=== PATIENT | male | born 1965 | race Caucasian/White ===

== ENCOUNTER 2018-09-17 19:00 | Inpatient (IN) | payer SELFPAY ==
[~2018-09-17 19:00] MED LIST: ISOVUE-370 76%-LOCM 1 ML ONE
[2018-09-17 19:25] LABS: #Basophils 0.1 thou/uL (0.0-0.2); #Eosinphils 0.1 thou/uL (0.0-0.7); #Lymphocytes 3.3 thou/uL (1.20-3.40); #Monocytes 0.5 thou/uL (0.11-0.59); #Neutrophils 2.9 thou/uL (1.40-6.50); %Basophils 1.3 % (0.0-1.0); %Eosinophils 1.5 % (0.0-10.0); %Lymphocytes 47.8 % (21.0-51.0); %Monocytes 7.5 % (0.0-10.0); Hemoglobin 15.5 g/dL (14.0-18.0); Mean Corpuscular HGB CONC 34.6 g/dL (32.0-36.0); Mean Corpuscular Hemoglobin 30.8 pg (27.0-31.0); Mean Corpuscular Volume 88.9 fL (78.0-98.0); Mean Platelet Volume 7.5 fL (7.4-10.4); Platelet Count 245 thou/uL (130-400); RBC Distribution Width 11.5 % (11.5-14.5); Red Blood Cell (RBC) Count 5.02 mill/uL (4.70-6.10); White Blood Cell (WBC) Count 6.9 thou/uL (4.8-10.8)
--- NOTE | 2018-09-17 19:28 | RAD ---
Portable frontal chest radiograph: 09/17/2018 COMPARISON: 02/11/2017 HISTORY: Chest pain FINDINGS: Lungs are clear. Heart and mediastinal contours appear within normal limits. IMPRESSION: No acute findings.
[2018-09-17 19:48] LABS: ALT (SGPT) 19 U/L (8-55); AST (SGOT) 15 U/L (5-34); Albumin 4.4 g/dL (3.5-5.0); Alkaline Phosphatase 82 U/L (40-150); Anion Gap 14 mmol/L (10-20); BUN (Urea Nitrogen) 15 mg/dL (8.4-25.7); Bilirubin, Total 0.5 mg/dL (0.2-1.2); CK (CPK) 205 U/L (30-200); Calc. Creatinine Clearance 0 mL/min (70-130); Calcium 9.3 mg/dL (7.8-10.44); Carbon Dioxide 24 mmol/L (22-29); Chloride 102 mmol/L (98-107); Estimated GFR-MDRD 84; Globulin 2.8 g/dL (2.4-3.5); Glucose 279 mg/dL (70-105); Lipase 63 U/L (8-78); Potassium 3.7 mmol/L (3.5-5.1); Protein, Total 7.2 g/dL (6.0-8.3); Sodium 136 mmol/L (136-145)
[2018-09-17] MEDS ORDERED: Ondansetron PF 4 MG/2 ML Vial ONE (19:53)
[2018-09-17] MEDS ORDERED: Morphine 4 MG/ML VIAL ONE ×2 (19:53→21:05)
[2018-09-17] MEDS ORDERED: Nitroglycerin 50 MG/250 ML BOT 250 ML ONE (21:05)
[2018-09-17] MEDS ORDERED: Ketorolac Tromethamine 30 MG/ML VIAL ONE (21:05)
[2018-09-17] MEDS ORDERED: Nitroglycerin 50 MG/250 ML BOT 250 ML IVPB SCH (21:15)
[2018-09-17] MEDS ORDERED: Ondansetron ODT 4 MG TAB PO PRN (21:16)
[2018-09-17] MEDS ORDERED: Ondansetron PF 4 MG/2 ML Vial IVP PRN (21:16)
[2018-09-17] MEDS ORDERED: Acetaminophen 325 MG TAB PO PRN (21:16)
--- NOTE | 2018-09-17 21:57 | CT ---
CT angiogram of the chest and abdomen: 09/17/2018 COMPARISON: 02/21/2016 HISTORY: Pain, assess for thoracic or abdominal aortic aneurysm/dissection TECHNIQUE: Axial CT imaging at 2.5 mm intervals through the chest and abdomen using a CT angiogram pr otocol with coronal and sagittal 3-D reformatted imaging FINDINGS: No lymphadenopathy noted in the chest. Coronary arterial calcification noted. No pleural, p ericardial, or mediastinal fluid. No evidence for aneurysm or dissection of the thoracic aorta. Lung parenchyma appears unremarkable. The hepatic parenchyma is hypodense, suggesting hepatic steatosis. The gallbladder, spleen, pancreas, adrenal glands, and kidneys demonstrate no acute findings. There is a stable low-density lesion emanating from the upper pole of the right kidney measuring 1.3 cm, suggesting a stable renal cyst. Limited assessment of the bowel is unremarkable. The pelvis is not imaged on this exam. No evidence f or aneurysm or dissection of the abdominal aorta. Celiac axis, SMA, bilateral renal arteries, and [place] patent. Mild atherosclerotic calcification of the distal abdominal aorta noted. Osseous structures demonstrate no acute findings. IMPRESSION: No evidence for aneurysm or dissection of the aorta.
[2018-09-17] MEDS ORDERED: Dextrose 5% in Water 1,000 ML IV PRN (22:03)
[2018-09-17] MEDS ORDERED: Dextrose 50% Abboject 50 ML SYRINGE SLOW IVP PRN (22:03)
[2018-09-17] MEDS ORDERED: Enoxaparin Sodium 100 MG/ML SYRINGE ONE (22:30)
[2018-09-17 22:55] LABS: Troponin I 0.086 ng/mL (< 0.028)
[2018-09-17 23:28] VITALS: BMI 29.2
--- NOTE | 2018-09-17 23:30 | HP ---
PRIMARY CARE DOCTOR: Primary care doctor for this patient is Dr. Jarrett Burns. CODE STATUS: Full code. TIME OF EVALUATION: 9:30 p.m. CHIEF COMPLAINT: Chief complaint for this patient was chest pain. HISTORY OF PRESENT ILLNESS: A 52-year-old male patient with past medical history of coronary artery disease and noncompliance due to financial problems, came to the hospital after having chest pain that was started around 6 p.m., no clear triggers, no alleviating factors. The only event related to the chest pain was the patient got stressed out due to his dogs having a fight. The pain radiates to the left arm, pain is pressure like, severe, has improved with morphine, but has taken a little time to get any improvement. Case has been discussed with Dr. Raines by Dr. Charles, and the plan is to place the patient in ICU on nitroglycerin drip and morphine. We will follow recommendations from Cardiology. As noted, he had acute CA 4 years ago and had 3 stents placed at that time. REVIEW OF SYSTEMS: CONSTITUTIONAL: No fever, chills, or generalized weakness. RESPIRATORY: No cough, sputum production, or shortness of breath. CARDIOVASCULAR: Chest pain. No palpitation. GASTROINTESTINAL: No nausea, no vomiting, diarrhea, or abdominal pain. PHOTOCOPYING MACHINE OPERATOR: No dizziness, headache, or feeling lightheaded. GENITOURINARY: No burning on urination. EXTREMITIES: No leg swelling. All other systems were reviewed and negative except for the findings mentioned above. PAST MEDICAL HISTORY: Reviewed. The patient has coronary artery disease, status post acute CA and stent placement 4 years ago; type 2 diabetes; hyperlipidemia; high cholesterol; hypertension; and COPD. PAST SURGICAL HISTORY: The patient has orthopedic surgeries in the left ankle. PSYCHIATRIC HISTORY: No previous psych history. SOCIAL HISTORY: The patient drinks socially. No drugs. Former tobacco user. FAMILY HISTORY: Reviewed. The patient has a history of mother having coronary artery disease. KNOWN ALLERGIES: No known drug allergies. REPORTED MEDICATIONS: The patient was noncompliant. Reportedly, he was on Plavix, aspirin, and Coreg, but was unable to buy due to financial issues. PHYSICAL EXAMINATION: VITAL SIGNS: On presentation, blood pressure 176/95, heart rate 83, respiratory rate 16, temperature 98.4, pain 7/10, and oxygen saturation was 98% on 2 L. GENERAL APPEARANCE: The patient is alert, oriented, not in acute distress. HEENT: Eyes, normal conjunctivae. Moist oral mucosa. Anicteric. No JVD. RESPIRATORY: Bilateral air entry. No rales. No wheezes. Symmetric expansion. CARDIOVASCULAR: Normal rate, regular rhythm. No murmurs. No gallop. No edema. The patient is hypertensive. ABDOMEN: Soft, normal bowel sounds. MUSCULOSKELETAL: Baseline range of motion and strength. No tenderness. SKIN: Warm, intact. No pallor. No rash. No redness. Peripheral pulses are present. Capillary refill seems to be intact. NEUROLOGIC: No evidence of any new focal weakness. Baseline speech. Cranial nerves seem to be intact. PSYCH: The patient is in good mood. No anxiety. Optimal judgment. IMAGING STUDIES: EKG was reviewed. The patient has normal sinus rhythm at the rate of 64 with WA 146, QRS 112, QT corrected 456, incomplete RBBB. CT dissection was done and reviewed, no evidence of aneurysmal dissection of the aorta. Chest x-ray, no acute findings. LABORATORY DATA: Labs were reviewed. White count 6.9, hemoglobin 15.5, MCV 88.9, and platelet count 245. D-dimer 0.36. Chemistry; sodium 136, potassium 3.7, chloride 102, carbon dioxide 24, anion gap 14, BUN 15, creatinine 0.95, GFR 84, glucose 279, calcium 9.3, and total bilirubin 0.5. LFTs were negative. CK 205. Troponin was negative. Lipase 63. ASSESSMENT AND PLAN: The patient will be placed in the hospital with following medical problems: 1. Unstable angina. The patient has persistent severe chest pain radiating to the left arm. The patient has a history of strong coronary artery disease with 3 stents placed 4 years ago after acute myocardial infarction. The patient has been placed on nitroglycerin drip, with morphine, Lovenox, and aspirin. We will monitor in ICU, likely to go for cardiac cath in the morning. 2. Hypertensive emergency. Blood pressure was in the range of 220s, the patient is on nitroglycerin drip, we will monitor, we will titrate as needed. We will monitor critical care. We have reconciled home medications. The patient was noncompliant. We are restarting medication he was taking prior to discharge last time including Coreg and lisinopril. 3. Systolic congestive heart failure after last myocardial infarction in 2014 and left ventricular ejection fraction was 30% to 35%. The patient was taking Lasix that will be restarted for now. We will reconcile home medications, restart them. We will follow Cardiology recommendations. 4. Uncontrolled diabetes. The patient is hyperglycemic with blood sugar of 279, we are restarting on insulin. Both Lantus and sliding scale for optimal control. 5. Deep venous thrombosis prophylaxis. The patient is on full-dose Lovenox now. Critical care time more than 35 minutes spent in bedside assessment, family consent, discussion of plan of care, review of records, medication reconciliation. Job ID: [id number]
[2018-09-18] MEDS: Morphine 2 MG/ML SYRINGE SLOW IVP PRN ×2 (01:52→08:14)
[2018-09-18 06:52] LABS: #Basophils 0.1 thou/uL (0.0-0.2); #Eosinphils 0.1 thou/uL (0.0-0.7); #Lymphocytes 2.9 thou/uL (1.20-3.40); #Monocytes 0.8 thou/uL (0.11-0.59); #Neutrophils 6.7 thou/uL (1.40-6.50); %Basophils 0.5 % (0.0-1.0); %Eosinophils 0.8 % (0.0-10.0); %Lymphocytes 27.1 % (21.0-51.0); %Neutrophils 63.6 % (42.0-75.0); Hemoglobin 14.8 g/dL (14.0-18.0); Mean Corpuscular HGB CONC 34.4 g/dL (32.0-36.0); Mean Platelet Volume 7.9 fL (7.4-10.4); Platelet Count 231 thou/uL (130-400); RBC Distribution Width 11.6 % (11.5-14.5); Red Blood Cell (RBC) Count 4.77 mill/uL (4.70-6.10); White Blood Cell (WBC) Count 10.6 thou/uL (4.8-10.8)
[2018-09-18] MEDS ORDERED: Midazolam HCl 2 mg/2 ml Vial ONE (07:09)
[2018-09-18] MEDS ORDERED: Fentanyl 100 MCG/2 ML VIAL ONE (07:09)
[2018-09-18 07:21] LABS: Anion Gap 12 mmol/L (10-20); BUN (Urea Nitrogen) 15 mg/dL (8.4-25.7); Calc. Creatinine Clearance 124 mL/min (70-130); Calcium 9.1 mg/dL (7.8-10.44); Carbon Dioxide 25 mmol/L (22-29); Chloride 103 mmol/L (98-107); Estimated GFR-MDRD 89; Glucose 312 mg/dL (70-105); Potassium 3.7 mmol/L (3.5-5.1); Sodium 136 mmol/L (136-145)
[2018-09-18] MEDS ORDERED: Carvedilol 25 MG TAB PO SCH ×2 (08:00→09:00)
[2018-09-18] MEDS ORDERED: Aspirin 325 MG TAB PO SCH (08:00)
[2018-09-18] MEDS: Furosemide 40 MG TAB PO SCH (08:18)
[2018-09-18] MEDS: Lisinopril 20 MG TAB PO SCH ×2 (08:18→20:25)
[2018-09-18] MEDS: HYDROcodone/Acetaminophen 10/325 mg Tablet PO PRN (08:33)
[2018-09-18] MEDS: HumaLOG 300 UNITS/3 ML VIAL SC PRN ×2 (08:34→17:51)
[2018-09-18] MEDS ORDERED: Iopamidol 370 76% 100 ML VIAL ONE (08:39)
--- NOTE | 2018-09-18 08:40 | CON ---
DATE OF CONSULTATION: REASON FOR CONSULTATION: Elevated troponin and chest pain. HISTORY OF PRESENT ILLNESS: Mr. Moreno is a very pleasant 52-year-old gentleman who I last him in 2014. He presented with acute myocardial infarction. He underwent successful stent placement with a bare-metal stent. He has been lost to follow up. Recently, he states his dogs were fighting. He the dogs and had acute onset of chest pain during the incident. The pain was severe. The pain seems to be sharp and worse with deep breath. No other ameliorating, exacerbating, or precipitating factors present. PAST MEDICAL HISTORY: As above including diabetes mellitus, hyperlipidemia, hypertension, and COPD. MEDICATIONS: None. ALLERGIES: NONE. REVIEW OF SYSTEMS: A 10-point review of systems is reviewed as above, otherwise negative. PHYSICAL EXAMINATION: VITAL SIGNS: Blood pressure 137/81, pulse 73, temperature afebrile. NEUROLOGIC: The patient is alert and oriented x3 with no focal neurologic deficits. HEENT: Sclerae without icterus. Mouth has moist mucous membranes with normal pallor. NECK: No JVD. Carotid upstroke brisk. No bruits bilaterally. LUNGS: Clear to auscultation with unlabored respirations. BACK: No scoliosis or kyphosis. CARDIAC: Regular rate and rhythm with normal S1 and S2. No S3 or S4 noted. No significant rubs, murmurs, thrills, or gallops noted throughout the precordium. PMI is not displaced. There is no parasternal heave. ABDOMEN: Soft, nontender, nondistended. No peritoneal signs present. No hepatosplenomegaly. No abnormal striae. EXTREMITIES: 2+ femoral and 2+ dorsalis pedis pulses. No cyanosis, clubbing, or edema. SKIN: No gross abnormalities. PERTINENT LABORATORY DATA: Hemoglobin 14.8, creatinine 0.34. CK of 205. Creatinine 0.9. IMPRESSION: 1. Elevated troponin. 2. Chest pain. RECOMMENDATIONS: I am unsure whether this is truly unstable angina or type 2 NC from recent stress. He has been off his diabetes medicines for several years due to compliance and financial constraints. At this point, I recommend coronary angiography with possible PCI. I discussed the procedure in full detail with Mr. Chaparro. Risks included, but not limited to the following: , stroke, NC, need for emergency surgery, loss of limb, bleeding, and infection, as well as a reaction to the dye causing kidney failure and needing long-term dialysis. I also discussed the risks of PCI to include all of the above including coronary dissection and perforation in addition to acute stent thrombosis and restenosis. All questions about the procedure were answered. Given the above, the patient agreed to proceed with coronary angiography and possible PCI. All questions answered. Given the above, the patient agreed to proceed with above procedure. Job ID: [id number]
[2018-09-18] MEDS: Aspirin 81 mg Enteric Coated Tablet PO SCH (08:45)
[2018-09-18] MEDS: Carvedilol 6.25 MG TAB PO SCH ×2 (08:45→20:25)
[2018-09-18] MEDS ORDERED: Clopidogrel Bisulfate 75 MG TAB PO SCH (09:00)
[2018-09-18] MEDS ORDERED: Non-Formulary Item 1 EACH (Insulin Glargine,Hum.Rec.Anlog [Lantus Solostar] 20 UNIT) SQ SCH (09:00)
--- NOTE | 2018-09-18 10:10 | PDOC.PN ---
- Subjective Encounter Start Date: 09/18/18 Encounter Start Time: 12:30 Subjective: Patient back from cath. Still with soreness across front of chest and left -: arm. Better than yesterday. Reportedly nothing operable found -: on cath. - Objective Resuscitation Status - Order Detail: 09/17/18 21:16 Resuscitation Status Routine Resuscitation Status: FULL: Full Resuscitation MAR Reviewed: Yes Vital Signs & Weight: Vital Signs (12 hours) Temp BP Pulse Ox 09/18/18 08:45 147/78 H 09/18/18 08:18 147/78 H 09/18/18 02:00 100 09/17/18 22:54 98.4 F Weight Weight 198 lb 6.656 oz Most Recent Monitor Data Heart Rate from ECG 71 NIBP 136/71 NIBP BP-Mean 92 Respiration from ECG 19 SpO2 97 I&O: 09/17/18 09/18/18 09/19/18 06:59 06:59 06:59 Intake Total 164 Output Total 750 Balance -586 Result Diagrams: 09/18/18 06:29 09/18/18 06:29 Additional Labs: Accuchecks 09/18/18 09/18/18 08:18 06:24 POC Glucose 281 H 309 H Phys Exam - Physical Examination Constitutional: NAD HEENT: moist MMs Respiratory: no wheezing, no rales, no rhonchi Cardiovascular: RRR, no significant murmur Gastrointestinal: soft, positive bowel sounds Neurological: non-focal, moves all 4 limbs Psychiatric: normal affect, A&O x 3 Dx/Plan (1) NSTEMI (non-ST elevated myocardial infarction) Code(s): I21.4 - NON-ST ELEVATION (NSTEMI) MYOCARDIAL INFARCTION Status: Acute Comment: chest pain and elevated troponin, taken to quality control lab tech this AM, report pending (2) Coronary atherosclerosis of [place] coronary artery Code(s): I25.10 - ATHSCL HEART DISEASE OF [place] CORONARY ARTERY W/O ANG PCTRS Status: Chronic Comment: previous bare metal stent (3) Diabetes mellitus type 2 in nonobese Code(s): E11.9 - TYPE 2 DIABETES MELLITUS WITHOUT COMPLICATIONS Status: Chronic Comment: off medications for years, restarting Lantus and SSI (4) Hypertensive emergency Code(s): I16.1 - HYPERTENSIVE EMERGENCY Status: Acute Comment: BP improved with nitro drip (5) Chronic systolic CHF (congestive heart failure) Code(s): I50.22 - CHRONIC SYSTOLIC (CONGESTIVE) HEART FAILURE Status: Chronic Comment: EF 30-35% in 2015 - Plan cont current plan of care, DVT proph w/lovenox * . - Discharge Day Encounter end time: 12:40
[2018-09-18] MEDS: Insulin Glargine 20 UNITS in Pre-Filled Syringe 1 EACH SC SCH ×2 (10:36→20:25)
[2018-09-18] MEDS: Enoxaparin Sodium 40 MG/0.4 ML SYRINGE SC SCH (10:36)
--- NOTE | 2018-09-18 13:21 | CON ---
DATE OF CONSULTATION: 09/18/2018 SERVICE: Pulmonary Medicine. REASON FOR CONSULTATION: ICU patient. HISTORY OF PRESENT ILLNESS: The patient is a 52-year-old white male with past medical history significant for coronary artery disease. He was in his usual state of health until 3 months ago. Whenever he exerted himself, he had onset of shortness of breath, chest discomfort, and left arm pain. This was exactly the same discomfort that he experienced previously with acute coronary syndrome. Either way, he had this pain over 3 months as it became increasingly intense with less exertion. He finally had exert himself to a significant degree to break up a dog fight. When he did this, he had horrendous discomfort and has not gone away since. He presented to the emergency department. Cardiac catheterization was performed, but the vessels were so small that no intervention could be undertaken. He denies any current fevers, chills, cough, sputum production, nausea, vomiting, or diarrhea. He continues to have ongoing chest discomfort. PAST MEDICAL HISTORY: 1. Coronary artery disease. 2. Type 2 diabetes mellitus. 3. Hypertension. 4. Dyslipidemia. 5. Obstructive sleep apnea. 6. COPD, possible. PAST SURGICAL HISTORY: Left ankle surgeries. FAMILY HISTORY: Noncontributory. SOCIAL HISTORY: He drinks socially. He is a former tobacco user. He has greater than [id number] history of smoking, but quit within the last 5 years. No illicit drug use. He denies any exposure to chemicals, dust, asbestos, or tuberculosis. ALLERGIES: NO KNOWN DRUG ALLERGIES. MEDICATIONS: List of the patient's inpatient medications was reviewed. No specific updates were made at this time. REVIEW OF SYSTEMS: General; head, ears, eyes, nose, throat; cardiovascular; respiratory; GI; ; musculoskeletal; neurologic; and skin are negative except as mentioned in the HPI. PHYSICAL EXAMINATION: VITAL SIGNS: Afebrile, pulse 72, blood pressure 130/85, respirations 19, and saturation 98% on 2 L nasal cannula. GENERAL: The patient is awake and alert, in no apparent distress. LUNGS: Excellent air entry. No prolonged expiratory phase or wheezing is present. HEART: Normal rate and regular. ABDOMEN: Soft, nontender, and nondistended. Bowel sounds are positive. MUSCULOSKELETAL: No cyanosis or clubbing. No pitting in the bilateral lower extremities. NEUROLOGIC: Grossly nonfocal. LABORATORY DATA: WBC 10.6, hemoglobin 14.8, platelets 231,000. D-dimer 0.36. Basic metabolic profile is otherwise unremarkable. Liver function studies are unremarkable. Troponin is up trending to 0.34. IMAGING STUDIES: CT dissection protocol demonstrates no evidence of dissection. Chest x-ray demonstrates no acute cardiopulmonary abnormality. ASSESSMENT: 1. Dkl-IQ-itwluisjb myocardial infarction, possibly demand. 2. Obstructive sleep apnea. 3. Acute on chronic systolic heart failure. 4. History of diabetes. DISCUSSION AND PLAN: We will get hemoglobin A1c in the morning. I will repeat a troponin now. If it is up trending, we will consider initiating anticoagulation. Pulmonary/Critical Care will continue to follow along as the patient will need to remain in the ICU for the next 24 hours. 70 minutes have been devoted to this patient in various activities. I personally reviewed all imaging studies and laboratory data noted within this document. For fifty percent of this time, I was interacting with the patient at the bedside or coordinating care with the care team. For the remainder of the time I was immediately available to the patient in the hospital unit. Job ID: [id number] MTDD
[2018-09-18 13:59] LABS: Troponin I 2.889 ng/mL (< 0.028)
[2018-09-18] MEDS ORDERED: Nitroglycerin 2% Ointment 1 INCH/1 GM Packet TOP SCH (14:45)
[2018-09-18] MEDS ORDERED: Ketorolac Tromethamine 30 MG/ML VIAL IVP SCH (14:45)
--- NOTE | 2018-09-18 19:04 | PRG ---
DATE OF SERVICE: I was called again to Mr. Chaparro at bedside. He continued to have pain. He states his pain has been unremitting since yesterday. After further discussion, it appeared he did have a confrontation with both animals. He does have reproducible pain, that is felt to be tevdbbsr-nk-trrmwx with hnkv-ey-bmaqnxoa palpation in the left upper chest. I reviewed his films once again. He does have qhidopky-jo-anecia small vessel disease mainly in the circumflex artery and right coronary artery, that are not amenable to percutaneous intervention. His elevated troponin is likely related to [place] type-2 with no unstable plaque present. Would regive 1 dose of Toradol. May need nonsteroidal therapy prior to discharge. Otherwise, continue current medical therapy. Recommend aspirin, Plavix, statin therapy, Imdur in addition to beta-jacques therapy. From my standpoint, will be okay for discharge to home tomorrow. Job ID: [id number]
[2018-09-18] MEDS ORDERED: Montelukast Sodium 10 mg Tablet PO SCH (21:00)
[2018-09-18] MEDS ORDERED: Atorvastatin Calcium 40 MG TAB PO SCH (21:00)
[2018-09-19 04:54] LABS: Hemoglobin A1c 10.7 % (4.0-6.0)
[2018-09-19] MEDS ORDERED: Venlafaxine HCl XR 150 MG CAP PO SCH ×2 (08:00→09:00)
[2018-09-19] MEDS ORDERED: Carvedilol 6.25 MG TAB PO SCH (09:00)
[2018-09-19] MEDS: HYDROcodone/Acetaminophen 10/325 mg Tablet PO PRN ×2 (09:46→15:56)
[2018-09-19] MEDS: Insulin Glargine 20 UNITS in Pre-Filled Syringe 1 EACH SC SCH (09:48)
[2018-09-19] MEDS: Enoxaparin Sodium 40 MG/0.4 ML SYRINGE SC SCH (09:48)
[2018-09-19] MEDS: Aspirin 81 mg Enteric Coated Tablet PO SCH (09:49)
[2018-09-19] MEDS: Lisinopril 20 MG TAB PO SCH (09:49)
[2018-09-19] MEDS: Furosemide 40 MG TAB PO SCH (09:49)
[2018-09-19] MEDS: HumaLOG 300 UNITS/3 ML VIAL SC PRN (11:35)
[2018-09-19 13:06] VITALS: BP 135/83; TEMP 98.1
--- NOTE | 2018-09-19 16:43 | PRG ---
DATE OF SERVICE: 09/19/2018 SERVICE: Pulmonary Medicine. INTERVAL HISTORY: The patient is doing really well from respiratory standpoint. He is breathing comfortably. He has no complaints of chest pain, fevers, or chills. Occasionally, he will have some shoulder discomfort that comes and goes. Otherwise, he is returning to his usual state of health. PHYSICAL EXAMINATION: VITAL SIGNS: Afebrile, pulse 73, blood pressure 135/83, respirations 16, and saturation 95% on room air. GENERAL: The patient is awake and alert, in no apparent distress. LUNGS: Decent air entry. There is no prolonged expiratory phase or wheezing present. HEART: Normal rate, regular. ABDOMEN: Soft, nontender, and nondistended. Bowel sounds are positive. MUSCULOSKELETAL: No cyanosis or clubbing. No pitting in bilateral lower extremities. NEUROLOGIC: Grossly nonfocal. LABORATORY DATA: Troponin 2.889. Hemoglobin A1c 10.7. ASSESSMENT: 1. Non-ST elevation myocardial infarction possibly secondary to demand. 2. Coronary artery disease, severe. 3. Obstructive sleep apnea. 4. Type 2 diabetes mellitus with elevated hemoglobin A1c. DISCUSSION AND PLAN: At this point, the patient has no further requirements for inpatient Pulmonary or Critical Care opinion. He is going to follow up with Dr. Craft in the outpatient setting as previously directed. If he is so inclined, he can follow up with me to re-evaluate for sleep apnea. I have encouraged him to touch base with his primary care physician in order to get his diabetes back under control. Job ID: [id number]
--- NOTE | 2018-09-20 01:16 | DIS ---
DATE OF ADMISSION: 09/17/2018 DATE OF DISCHARGE: 09/19/2018 DISCHARGE DIAGNOSES: 1. Non-ST elevation myocardial infarction, type 2. 2. Coronary artery disease. 3. Diabetes mellitus type 2 insulin requiring, labile. 4. Hypertension, stable. 5. Hyperlipidemia. CONSULTATIONS: 1. Dr. Ankur Craft with Cardiology Service. 2. Dr. Caballero with Pulmonology Service. PERTINENT LAB AND X-RAY FINDINGS: Hemoglobin A1c 10.7, previously noted 8.2 on 12/29/2014. Troponin I ranged between 0.010 to 2.89. CBC within normal limits. CT of the chest with aortic dissection protocol dated 09/17/2018 showed no evidence of aneurysm or dissection of the aorta. Portable chest x-ray dated 09/17/2018 showed no acute cardiopulmonary process. Cardiac catheterization dated 09/18/2018 showed moderate to severe small vessel coronary disease. Patent stent in the mid left anterior descending artery. HOSPITAL COURSE: The patient was initially admitted after presenting with chest pain concerning for unstable angina. The patient underwent serial troponin I showing overall increasing values consistent with non ST-elevation myocardial infarction. The patient was evaluated by the Cardiology Service, undergoing cardiac catheterization showing severe small vessel disease consistent with diabetes mellitus and prior history of known coronary artery disease. The vasculature in question was not amenable to any surgical intervention or stent placement with recommendations for medical management. The patient was managed postoperatively with some chest pain noted. The patient received Toradol for suspected musculoskeletal origin of the chest pain with overall improvement. The patient continued on aspirin 81 mg daily in addition to his Lipitor and Coreg. The patient overall clinically stabilized in the post catheterization. Telemetry monitoring showed sinus mechanism without evidence of acute arrhythmia or dysrhythmia. The patient overall remained clinically stable. The patient was noted with labile glucose trend with recommendations for further monitoring and titration of his diabetic regimen on an ongoing basis after discharge. I have examined the patient at the time of discharge and discussed followup instructions. The patient verbalized understanding and agreement ready for discharge on 09/19/2018. DISCHARGE MEDICATIONS: 1. Enteric-coated aspirin 81 mg p.o. daily. 2. Lipitor 40 mg p.o. at bedtime. 3. Coreg 12.5 mg p.o. b.i.d. 4. Plavix 75 mg p.o. daily. 5. Lasix 40 mg p.o. daily. 6. Imdur 30 mg p.o. daily. 7. Singulair 10 mg p.o. at bedtime. 8. Effexor XR 150 mg p.o. q.a.m. 9. Lantus 20 units subcutaneously b.i.d. FOLLOWUP: The patient to follow up with his primary care provider, Eleanor Bangura on 09/24/2018 at 9:15 a.m. The patient will follow up with Dr. Ankur Craft within 10 days of discharge. CONDITION ON DISCHARGE: Stable. ACTIVITY: Ad-samantha. DIET: ADA and heart healthy. CODE STATUS: Full. DISPOSITION: To home, 09/19/2018. TIME SPENT: Total time preparing and coordinating discharge, 33 minutes. Job ID: [id number]
== END 2018-09-19 16:07 | disposition home or self-care (01) | DRG 248 ==
LOC: ERS 19:00 → CCU 22:00 → 2NO 09-18 13:58
PROVIDERS: ADMIT Hospitalist; ATTEND Hospitalist
PROC: 4A023N7 Measurement of Cardiac Sampling and Pressure, Left Heart, Percutaneous Approach (ICD-10-PCS; principal; 2018-09-17)
PROC: 02703DZ Dilation of Coronary Artery, One Artery with Intraluminal Device, Percutaneous Approach (ICD-10-PCS; 2018-09-17)
PROC: B2111ZZ Fluoroscopy of Multiple Coronary Arteries using Low Osmolar Contrast (ICD-10-PCS; 2018-09-17)
DX: I21.4 Non-ST elevation (NSTEMI) myocardial infarction (principal); I50.23 Acute on chronic systolic (congestive) heart failure; I16.1 Hypertensive emergency; I25.110 Atherosclerotic heart disease of native coronary artery with unstable angina pectoris; E11.65 Type 2 diabetes mellitus with hyperglycemia; I25.2 Old myocardial infarction; E78.00 Pure hypercholesterolemia, unspecified; J44.9 Chronic obstructive pulmonary disease, unspecified; I11.0 Hypertensive heart disease with heart failure; G47.33 Obstructive sleep apnea (adult) (pediatric)
CPT/HCPCS: 36415; 36416; 71045; 71275; 76942; 80048; 80053; 82550; 83036; 83690; 84484; 85025; 85379; 93005; 93458; 93798; 96365; 96372; 96375; 96376; 99152; C1760; C1769; J1644; J1650; J1825; J1885; J2250; J2270; J2405; J3010; Q9966; Q9967

== ENCOUNTER 2019-04-03 02:12 | Emergency (ER) | payer SELFPAY ==
[2019-04-03] MEDS ORDERED: Ketorolac Tromethamine 30 MG/ML VIAL ONE (02:28)
[2019-04-03] MEDS ORDERED: HYDROcodone/Acetaminophen 5/325 mg Tablet ONE (02:28)
[2019-04-03] MEDS ORDERED: Diazepam 5 MG TAB ONE (02:35)
[2019-04-03 03:46] LABS: Bilirubin Negative (Negative); Blood, Urine Negative (Negative); Clarity Clear (Clear); Glucose, Urine (Dipstick) Greater than 1000 mg/dL (Negative); Leukocyte Negative Leu/uL (Negative); Nitrite Negative (Negative); Protein, Urine (Dipstick) Negative (Neg-Trace); Urobilinogen Normal mg/dL (Less than 2)
--- NOTE | 2019-04-03 07:30 | RAD ---
EXAM: XR Pelvis AP STANDARD PROVIDED CLINICAL HISTORY: Pain FINDINGS: There is no evidence for fracture or other acute osseous abnormality. Alignment appears anatomic. Denise nt spaces appear preserved. IMPRESSION: No evidence for an acute osseous abnormality. If there is persistent clinical concern, conservative m anagement and follow-up imaging advised. Acute
== END 2019-04-03 03:37 | disposition home or self-care (01) ==
LOC: ERS 02:12
DX: M54.5 Low back pain (principal); I25.10 Atherosclerotic heart disease of native coronary artery without angina pectoris; I25.2 Old myocardial infarction; E11.9 Type 2 diabetes mellitus without complications; E78.5 Hyperlipidemia, unspecified; E78.00 Pure hypercholesterolemia, unspecified; I10 Essential (primary) hypertension; J44.9 Chronic obstructive pulmonary disease, unspecified; F32.9 Major depressive disorder, single episode, unspecified; F17.210 Nicotine dependence, cigarettes, uncomplicated
CPT/HCPCS: 72170; 81003; 93005; 96372; J1885

== ENCOUNTER 2019-05-14 15:02 | Emergency (ER) | payer SELFPAY ==
[2019-05-14] MEDS ORDERED: Ketorolac Tromethamine 30 MG/ML VIAL ONE (15:34)
[2019-05-14 15:48] LABS: Bilirubin Negative (Negative); Blood, Urine Negative (Negative); Clarity Clear (Clear); Glucose, Urine (Dipstick) Greater than 1000 mg/dL (Negative); Leukocyte Negative Leu/uL (Negative); Nitrite Negative (Negative); Protein, Urine (Dipstick) Negative (Neg-Trace); Urobilinogen Normal mg/dL (Less than 2)
--- NOTE | 2019-05-14 16:01 | RAD ---
XR Lumbar Spine 2 Or 3 View: 05/14/2019 3:17 PM Low back pain COMPARISON: None FINDINGS: Fracture: None. Alignment: There is very slight retrolisthesis of L2 on L3. There is grade 1 anterior ceases of L5 on S1. There are bilateral pars defects at L5. Degenerative Change: There are multilevel marginal osteophytes affecting all lumbar intervertebral l evels. Soft tissues: Mild vascular calcifications are seen involving the abdominal aorta. Multiple phlebolit hs are seen within the lower pelvis. IMPRESSION: Mild lumbar spondylosis. Grade 1 anterolisthesis of L5 and S1 with bilateral pars defects at L5.
[2019-05-14] MEDS ORDERED: Diazepam 5 MG TAB ONE (16:23)
== END 2019-05-14 16:52 | disposition home or self-care (01) ==
LOC: ERS 15:02
DX: M47.9 Spondylosis, unspecified (principal); I25.2 Old myocardial infarction; E11.9 Type 2 diabetes mellitus without complications; E78.5 Hyperlipidemia, unspecified; I10 Essential (primary) hypertension; J44.9 Chronic obstructive pulmonary disease, unspecified; F17.210 Nicotine dependence, cigarettes, uncomplicated; Z79.899 Other long term (current) drug therapy
CPT/HCPCS: 36416; 72100; 81003; 96372; J1885

== ENCOUNTER 2019-06-22 08:41 | Outpatient (CLI) | payer MEDICARE ==
--- NOTE | 2019-06-22 11:26 | RAD ---
LUMBAR SPINE 4 VIEWS: DATE: 06/22/2019. COMPARISON: 05/14/2019. HISTORY: Back pain with right lower extremity radiculopathy. FINDINGS: This dictation will assume 5 lumbar-type vertebral bodies. Thus, the T12 vertebral body does not dem onstrate normal-appearing ribs with no rib on the left and a possibly hypoplastic rib on the right. Assuming 5 lumbar-type vertebral bodies, there is mild anterior osteophyte formation at L1-2, L2-3, L 3-4, and L4-5. Probable bilateral L5 pars defects are present. Anterolisthesis of L5 on S1 is noted , measuring approximately 1 cm on the neutral imaging. Flexion imaging demonstrates anterolisthesis of approximately 1 cm at L5-S1. Upon extension, this anterolisthesis is grossly unchanged. IMPRESSION: Lower lumbar spine degenerative change as detailed above. No acute osseous abnormality. POS: [facility]
--- NOTE | 2019-06-22 11:31 | MRI ---
MRI LUMBAR SPINE WITHOUT CONTRAST: Date: 06/22/2019 INDICATION: Spondylolisthesis. Low back pain. Radiation to right lower extremity. Comparison made to MRI lumbar spine dated 06/03/2015. FINDINGS: Lumbar vertebra maintain normal height. There is a mild anterolisthesis at L5-S1 which appears simila r to the prior study of 2016. Disc spaces are preserved. Findings at each level are described. At T12-L1, there is an annular fissure with broad based disc bulge and small focal protrusion central ly flattening the thecal sac. This abuts the anterior nerve roots just below the conus. No significan t central canal stenosis. No significant change from 2016 at this level. At L1-2, no significant disc bulge or protrusion. Mild facet hypertrophy. No central canal or foramin al stenosis. At L2-3, no disc bulge or protrusion. Moderate facet hypertrophy. No significant central canal or for aminal stenosis. At L3-4, no significant disc bulge. Moderate facet hypertrophy. Very mild central canal stenosis. At L4-5, mild disc bulge. Moderate facet hypertrophy. Mild central canal stenosis. At L5-S1, anterolisthesis with annular fissure and diffuse disc bulge. Facet hypertrophy. No signific ant central canal or foraminal stenosis identified. The disc bulge is slightly asymmetric to the righ t and this appears to contact the exiting right L5 nerve root within the foramina. IMPRESSION: 1. Mild anterolisthesis at L5-S1 is again seen. There is annular fissure with broad based bulge asym metric to the right at this level as described above. 2. Small protrusion at T12-L1 appears stable from prior exam as described above. POS: RAMÓN
--- NOTE | 2019-06-22 11:51 | CT ---
CT LUMBAR SPINE: Date: 06/22/2019 Axial tomograms obtained with multiplanar reconstruction. INDICATION: Lumbar spondylolisthesis and back pain. FINDINGS: Lumbar vertebra maintain normal height. There is mild anterolisthesis at L5-S1. There is bilateral po sterior spondylolysis at L5-S1. At the L5-S1 level, there is a mild diffuse disc bulge associated with this anterolisthesis. No signi ficant central canal stenosis. There is mild bilateral foraminal narrowing secondary to the listhesis and broad based disc bulge. There appears to be contact with exiting right L5 nerve root within the foramina from the disc bulge and listhesis. At L4-5, broad based disc bulge with posterior hypertrophic changes results in moderate to severe laura tral canal stenosis. Mild left foraminal stenosis. At L3-4, there is diffuse disc bulge. Mild central canal stenosis. No significant foraminal stenosis. At L2-3, there is minimal disc bulge. No significant central canal or foraminal stenosis. At L1-2, there is no significant disc bulge. No central canal or foraminal stenosis apparent. IMPRESSION: 1. Grade I anterolisthesis at l5-S1 with posterior spondylolysis at this level. 2. Central canal stenosis seen at L3-4 and L4-5 as described above. POS: RAMÓN
== END 2019-06-22 08:42 | disposition home or self-care (01) ==
LOC: TBSIIMAG 08:41
PROVIDERS: ATTEND Physician Assistant
DX: M43.16 Spondylolisthesis, lumbar region (principal); M25.559 Pain in unspecified hip; M79.606 Pain in leg, unspecified; M43.17 Spondylolisthesis, lumbosacral region; M47.817 Spondylosis without myelopathy or radiculopathy, lumbosacral region; M48.061 Spinal stenosis, lumbar region without neurogenic claudication; M51.25 Other intervertebral disc displacement, thoracolumbar region; M54.40 Lumbago with sciatica, unspecified side
CPT/HCPCS: 36415; 72110; 72131; 72148; 80053; 80061; 83036; 84270; 84403; 85025

== ENCOUNTER 2019-08-17 08:23 | Outpatient (CLI) | payer MEDICARE ==
--- NOTE | 2019-08-17 09:35 | ULT ---
ULTRASOUND LIVER WITH HEIN SCALE AND COLOR FLOW AND SPECTRAL DOPPLER IMAGING: HISTORY: Elevated LFTs. FINDINGS: The liver, gallbladder, pancreas, and spleen appear normal. The common duct measures 5 mm in diamete r. No free fluid is seen. There is normal flow and spectral waveforms in the hepatic, portal, and s plenic vasculature. IMPRESSION: Unremarkable exam. POS: MZA
== END 2019-08-17 08:24 | disposition home or self-care (01) ==
LOC: BICULT 08:23
PROVIDERS: ATTEND Internal Medicine Gastroenterology
DX: Z12.11 Encounter for screening for malignant neoplasm of colon (principal); R94.5 Abnormal results of liver function studies
CPT/HCPCS: 76705

== ENCOUNTER 2019-12-26 12:41 | Inpatient (IN) | payer MEDICARE, OTHER ==
[2019-12-26] MEDS ORDERED: Ondansetron PF 4 MG/2 ML Vial ONE (13:05)
[2019-12-26 13:30] LABS: #Eosinphils 0.1 thou/uL (0.0-0.7); #Lymphocytes 2.1 thou/uL (1.20-3.40); #Monocytes 0.6 thou/uL (0.11-0.59); #Neutrophils 3.9 thou/uL (1.40-6.50); %Basophils 0.2 % (0.0-1.0); %Eosinophils 1.7 % (0.0-10.0); %Lymphocytes 31.4 % (21.0-51.0); %Monocytes 9.1 % (0.0-10.0); %Neutrophils 57.7 % (42.0-75.0); Hemoglobin 13.9 g/dL (14.0-18.0); Mean Corpuscular HGB CONC 34.6 g/dL (32.0-36.0); Mean Corpuscular Volume 92.4 fL (78.0-98.0); Mean Platelet Volume 8.4 fL (7.4-10.4); Platelet Count 212 thou/uL (130-400); RBC Distribution Width 12.1 % (11.5-14.5); Red Blood Cell (RBC) Count 4.34 mill/uL (4.70-6.10); White Blood Cell (WBC) Count 6.8 thou/uL (4.8-10.8)
[2019-12-26 13:46] LABS: ALT (SGPT) 44 U/L (8-55); AST (SGOT) 32 U/L (5-34); Alkaline Phosphatase 61 U/L (40-110); Anion Gap 10 mmol/L (10-20); BUN (Urea Nitrogen) 15 mg/dL (8.4-25.7); Bilirubin, Total 0.4 mg/dL (0.2-1.2); Calc. Creatinine Clearance 0 mL/min (70-130); Calcium 8.4 mg/dL (7.8-10.44); Carbon Dioxide 26 mmol/L (22-29); Chloride 107 mmol/L (98-107); Estimated GFR-MDRD 75; Globulin 2.2 g/dL (2.4-3.5); Glucose 155 mg/dL (70-105); Potassium 4.1 mmol/L (3.5-5.1); Protein, Total 6.2 g/dL (6.0-8.3); Sodium 139 mmol/L (136-145)
--- NOTE | 2019-12-26 13:49 | RAD ---
XR Chest 1 View Portable History: Chest pain Comparison: Radiograph 2019 Findings: Heart size mildly enlarged. Low-grade pulmonary venous congestion. No pneumothorax. No effu claude. Impression: Cardiomegaly with mild pulmonary venous congestion.
[2019-12-26 15:37] LABS: Troponin I 0.013 ng/mL (< 0.028)
[2019-12-26] MEDS ORDERED: Guaifenesin DM 100-10/5 ML UDCUP PO PRN (16:34)
[2019-12-26] MEDS ORDERED: Acetaminophen 325 MG TAB PO PRN (16:34)
[2019-12-26] MEDS ORDERED: HumaLOG 300 UNITS/3 ML VIAL SC PRN ×2 (16:34)
[2019-12-26] MEDS ORDERED: Calcium Carbonate 500 MG ChewTAB PO PRN (16:34)
[2019-12-26] MEDS ORDERED: Dextrose 5% in Water 1,000 ML IV PRN (16:34)
[2019-12-26] MEDS ORDERED: Dextrose 50% Abboject 50 ML SYRINGE SLOW IVP PRN (16:34)
[2019-12-26] MEDS ORDERED: Senokot S 8.6-50 MG TAB PO PRN (16:34)
[2019-12-26] MEDS ORDERED: Bisacodyl 10 MG SUPP PR PRN (16:34)
[2019-12-26] MEDS ORDERED: Ondansetron PF 4 MG/2 ML Vial IVP PRN (16:34)
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
--- NOTE | 2019-12-26 19:31 | CON ---
DATE OF CONSULTATION: 12/26/2019 REASON FOR CONSULTATION: Hypotension. PRIMARY TEST LAB TECHNICIAN: Ankur Craft MD HISTORY OF PRESENT ILLNESS: Mr. Chaparro is a pleasant 54-year-old white gentleman, who comes to the hospital for presyncope and hypotension. His history is consistent with what sounds to be dehydration. He was outside all day yesterday playing with grand kid and did not drink a lot of fluids. This was yesterday. Today he was outside again and he leaned down to pick something up around 3:00 p.m., stood up and felt very lightheaded. He sat down. He checked his blood pressure. It was in the 60s over 40s and it did not come back up, so he decided to come in for evaluation. In the ER, he was in 80s over 40s. He was given IV fluids and is doing a lot better. He is actually scheduled to have a nuclear stress test tomorrow at Dr. Craft office for worsening of his cardiomyopathy. He has a history of coronary artery disease with previous anterior PA in 2014. At that point, he had just a mildly reduced EF. His EF had since normalized. In 2019 in August, he came in for chest pain, had a non STEMI, underwent heart catheterization again and was found to have a patent LAD stent, but with 50% in-stent restenosis and there was diffuse disease distally in the RCA and left circumflex, so he was treated medically at that time. His LV function at that time was probably around 50%. Looking at the actual films, I do not see an EF on the reports. He was seen in the office in late September and an echocardiogram was ordered that showed EF had come down to 35% to 40% so he was scheduled for a stress test to evaluate for ischemia. PAST MEDICAL HISTORY: 1. Coronary artery disease, status post PA in 2014, as above. 2. Obstructive sleep apnea. 3. Tobacco use. 4. Hypertension. 5. Hyperlipidemia. ALLERGIES: CODEINE GIVES HIM A RASH. OUTPATIENT MEDICATIONS: 1. Zetia 10 mg a day. 2. Aspirin 81 mg a day. 3. Atorvastatin 40 mg a day. 4. Carvedilol 12.5 mg b.i.d. 5. Lantus. 6. Plavix 75 mg a day. 7. Lisinopril 40 mg a day. 8. Acetaminophen with codeine p.r.n. 9. Sildenafil p.r.n. FAMILY HISTORY: Noncontributory. Father with Crohn's disease. SOCIAL HISTORY: Heavy smoker and heavy drinking but quit 5 years ago after his PA. No drug use. REVIEW OF SYSTEMS: A 12-point review of systems was done and was negative unless stated in the history of present illness. PHYSICAL EXAMINATION: VITAL SIGNS: I do not see temperature documented in the ER, but blood pressure was 87/47, at the lowest point, the last one was 114/71, pulse of 64, breathing 16 times per minute, saturating 99% on room air. GENERAL: Awake, alert, oriented x3 in no distress. HEENT: Normocephalic and atraumatic. NECK: Supple. LUNGS: Clear. CARDIOVASCULAR: S1 and S2. No S3 or S4. No murmurs. ABDOMEN: Soft. Positive bowel sounds. EXTREMITIES: No edema. SKIN: Warm and dry. LABORATORY DATA: Laboratory work was reviewed. White count of 6, hemoglobin of 13, hematocrit 40, and platelet count 212. Chemistry was reviewed, unremarkable. Creatinine is stable. Troponin is negative x2. CK was 260. BNP was 15. Chest x-ray was reviewed. Cardiomegaly with mild pulmonary venous congestion. ASSESSMENT: 1. Hypotension. 2. Likely mild level of dehydration. 3. New onset ischemic cardiomyopathy, last ejection fraction at 35-40%. 4. Coronary artery disease, stable at this time. No acute coronary syndrome. PLAN: 1. Agree with ruling out COVID-19. 2. Once this has been ruled out, Dr. Craft will evaluate tomorrow and can decide whether he can be risk stratified as an inpatient with a heart catheterization or just be discharged and reschedule his stress as an outpatient. Thank you for letting us to participate in the care of your patient. We will follow. Job ID: [id number]
[2019-12-26] MEDS ORDERED: Atorvastatin Calcium 40 MG TAB PO SCH (21:00)
[2019-12-26] MEDS ORDERED: Acetaminophen/Codeine 30-300mg Tablet PO PRN (21:38)
[2019-12-26] MEDS: Sodium Chloride 0.9% 1,000 ML IV SCH (21:56)
[2019-12-26] MEDS: Famotidine 20 MG TAB PO SCH (21:57)
[2019-12-26] MEDS: Carvedilol 6.25 MG TAB PO SCH (21:58)
[2019-12-26 23:14] VITALS: BMI 34.7
[2019-12-27 04:45] LABS: #Eosinphils 0.1 thou/uL (0.0-0.7); #Monocytes 0.6 thou/uL (0.11-0.59); #Neutrophils 2.7 thou/uL (1.40-6.50); %Basophils 0.7 % (0.0-1.0); %Eosinophils 2.3 % (0.0-10.0); %Lymphocytes 46.4 % (21.0-51.0); %Monocytes 8.7 % (0.0-10.0); %Neutrophils 41.9 % (42.0-75.0); Hemoglobin 13.7 g/dL (14.0-18.0); Mean Corpuscular HGB CONC 34.3 g/dL (32.0-36.0); Mean Corpuscular Hemoglobin 32.5 pg (27.0-31.0); Mean Corpuscular Volume 94.8 fL (78.0-98.0); Mean Platelet Volume 8.3 fL (7.4-10.4); Platelet Count 181 thou/uL (130-400); Red Blood Cell (RBC) Count 4.22 mill/uL (4.70-6.10); White Blood Cell (WBC) Count 6.5 thou/uL (4.8-10.8)
[2019-12-27 05:00] LABS: Anion Gap 10 mmol/L (10-20); BUN (Urea Nitrogen) 16 mg/dL (8.4-25.7); Calc. Creatinine Clearance 136 mL/min (70-130); Carbon Dioxide 25 mmol/L (22-29); Chloride 110 mmol/L (98-107); Estimated GFR-MDRD 86; Glucose 165 mg/dL (70-105); Potassium 4.1 mmol/L (3.5-5.1); Sodium 141 mmol/L (136-145)
[2019-12-27] MEDS: Sodium Chloride 0.9% 1,000 ML IV SCH (08:25)
--- NOTE | 2019-12-27 08:57 | PDOC.HOSPP ---
- Subjective Encounter Date: 12/27/19 Encounter Time: 08:54 Subjective: only complaint is LEARY, has no nitro ointment on - Objective Vital Signs & Weight: Vital Signs (12 hours) Temp Pulse Resp BP BP Pulse Ox 12/27/19 07:59 97.9 F 79 14 142/78 H 96 12/27/19 03:45 96.8 F L 62 20 143/76 H 98 12/27/19 00:00 153/83 H 12/26/19 21:58 181/91 H Weight Weight 228 lb I&O: 12/26/19 12/27/19 12/28/19 06:59 06:59 06:59 Intake Total 500 Output Total 700 Balance -200 Result Diagrams: 12/27/19 04:23 12/27/19 04:23 Additional Labs: Accuchecks 12/27/19 12/26/19 05:34 20:52 POC Glucose 130 H 215 H Hospitalist ROS - Medication Medications: Active Medications Generic Name Dose Route Start Last Admin Trade Name Freq PRN Reason Stop Dose Admin Atorvastatin Calcium 40 mg 12/26/19 21:00 12/26/19 21:58 Lipitor PO 40 mg HS LYDIA Administration Carvedilol 12.5 mg 12/26/19 21:00 12/26/19 21:58 Coreg PO 12.5 mg BID LYDIA Administration Famotidine 20 mg 12/26/19 21:00 12/26/19 21:57 Pepcid PO 20 mg BID LYDIA Administration Sodium Chloride 1,000 mls @ 100 mls/hr 12/26/19 16:34 12/27/19 08:25 Normal Saline 0.9% IV 12/27/19 12:33 1,000 mls .Q10H LYDIA Administration - Exam General Appearance: awake alert Neck: no JVD Heart: RRR, no murmur Respiratory: CTAB Gastrointestinal: soft, normal bowel sounds Extremities: no edema Hosp A/P (1) Dehydration Code(s): E86.0 - DEHYDRATION Status: Acute (2) Cardiomyopathy Code(s): I42.9 - CARDIOMYOPATHY, UNSPECIFIED Status: Chronic Qualifiers: Cardiomyopathy type: ischemic Qualified Code(s): I25.5 - Ischemic cardiomyopathy (3) CAD (coronary artery disease) Code(s): I25.10 - ATHSCL HEART DISEASE OF [place] CORONARY ARTERY W/O ANG PCTRS Status: Chronic Qualifiers: Coronary Disease-Associated Artery/Lesion type: [place] artery [place] vs. transplanted heart: [place] heart Associated angina: without angina Qualified Code(s): I25.10 - Atherosclerotic heart disease of [place] coronary artery without angina pectoris (4) HTN (hypertension) Code(s): I10 - ESSENTIAL (PRIMARY) HYPERTENSION Status: Acute Qualifiers: Hypertension type: essential hypertension Qualified Code(s): I10 - Essential (primary) hypertension (5) DM type 2 (diabetes mellitus, type 2) Status: Chronic Qualifiers: Diabetes mellitus correction insulin use: with joint terminal attack controller use Diabetes mellitus complication status: without complication Qualified Code(s): E11.9 - Type 2 diabetes mellitus without complications; Z79.4 - superintendent terminal (current) use of insulin - Plan improved, Stress test pending tylenol for LEARY FU
[2019-12-27] MEDS ORDERED: Aspirin 81 mg Enteric Coated Tablet PO SCH (09:00)
[2019-12-27] MEDS ORDERED: Enoxaparin Sodium 40 MG/0.4 ML SYRINGE SC SCH (09:00)
[2019-12-27] MEDS ORDERED: Lisinopril 20 MG TAB PO SCH (09:00)
[2019-12-27] MEDS ORDERED: Clopidogrel Bisulfate 75 MG TAB PO SCH (09:00)
[2019-12-27 11:55] LABS: SARS-CoV-2 MS2 Positive; SARS-CoV-2 N Gene Negative; SARS-CoV-2 S Gene Negative; SARS-CoV-2 by NAA Not Detected (NotDetected); SARS-CoV-2 orf1ab Negative
[2019-12-27] MEDS: Carvedilol 6.25 MG TAB PO SCH (15:38)
[2019-12-27] MEDS: Famotidine 20 MG TAB PO SCH (15:38)
[2019-12-27 15:57] VITALS: BP 158/84; TEMP 98.3
--- NOTE | 2019-12-27 18:21 | DIS ---
DATE OF ADMISSION: 12/26/2019 DATE OF DISCHARGE: 12/27/2019 PRIMARY CARE PROVIDER: Listed as Dr. Jarrett Burns. DISPOSITION: Discharged home. FINAL DIAGNOSES: Dehydration, coronary artery disease without angina, dyslipidemia, type 2 diabetes, cardiomyopathy, obstructive sleep apnea, diabetes mellitus type 2. DISCHARGE MEDICATIONS: Same as home medicines. 1. Atorvastatin 40 mg a day. 2. Aspirin 81 mg a day. 3. Insulin 35 units subcu twice a day. 4. Lasix 40 mg a day. 5. Plavix 75 mg a day. 6. Coreg 12.5 mg twice a day. 7. Imdur 30 mg a day. 8. Lisinopril 40 mg a day. ALLERGIES: NO KNOWN DRUG ALLERGIES. DIET: Diabetic. CODE STATUS: Full. HOSPITAL COURSE: The patient presents to the hospital with moderate dehydration , possible COVID. His initial laboratory; white count 6.8, hemoglobin 13.9, platelet count 212, creatinine 1.04, BUN 15. Lytes balanced. Blood sugar 155. Liver function tests normal. Troponins normal. COVID test was negative. He was made n.p.o. this morning because he was scheduled for a stress test at Dr. Craft's office. Dr. Craft saw him in consultation, stated he was too late for the stress test today to discharge him with followup with an outpatient stress test to be scheduled by Dr. Craft this week in his office. The patient was comfortable with this and was discharged home on current medications. Job ID: [id number] [facility]
--- NOTE | 2019-12-29 08:05 | CON ---
DATE OF CONSULTATION: 12/27/2019 HISTORY OF PRESENT ILLNESS: Mr. Chaparro is currently doing well. He recently was admitted for hypotension. No chest pain or pressure noted. Mr. Chaparro does have an extensive cardiac history. He has a previous history of severe CAD, not amenable to percutaneous intervention, in addition to diabetes mellitus and previous AR. PHYSICAL EXAMINATION: GENERAL: Patient is a pleasant male, who is in no acute distress. The patient appears their stated age. VITAL SIGNS: Blood pressure 120/70, pulse 80, and respirations 20. NEUROLOGIC: The patient is alert and oriented x3 with no focal neurologic deficits. HEENT: Sclerae without icterus. Mouth has moist mucous membranes with normal pallor. NECK: No JVD. Carotid upstroke brisk. No bruits bilaterally. LUNGS: Clear to auscultation with unlabored respirations. BACK: No scoliosis or kyphosis. CARDIAC: Regular rate and rhythm with normal S1 and S2. No S3 or S4 noted. No significant rubs, murmurs, thrills, or gallops noted throughout the precordium. PMI is not displaced. There is no parasternal heave. ABDOMEN: Soft, nontender, nondistended. No peritoneal signs present. No hepatosplenomegaly. No abnormal striae. EXTREMITIES: 2+ femoral and 2+ dorsalis pedis pulses. No cyanosis, clubbing, or edema. SKIN: No gross abnormalities. IMPRESSION: 1. Chest pain. 2. Coronary artery disease. 3. Obstructive sleep apnea. 4. Diabetes mellitus. RECOMMENDATIONS: Mr. Chaparro was initially admitted for hypotension, likely due to dehydration. His symptoms had resolved after IV fluids. Would be okay from my standpoint to discharge home with outpatient followup. Job ID: [id number]
== END 2019-12-27 15:50 | disposition home or self-care (01) | DRG 641 ==
LOC: ERS 12:41 → 2NO 20:17
PROVIDERS: ADMIT Internal Medicine; ATTEND Internal Medicine
DX: E86.0 Dehydration (principal); I42.9 Cardiomyopathy, unspecified; I25.10 Atherosclerotic heart disease of native coronary artery without angina pectoris; E78.5 Hyperlipidemia, unspecified; I95.9 Hypotension, unspecified; I25.5 Ischemic cardiomyopathy; E11.9 Type 2 diabetes mellitus without complications; Z20.828 Contact with and (suspected) exposure to other viral communicable diseases; G47.33 Obstructive sleep apnea (adult) (pediatric); Z79.4 Long term (current) use of insulin; Z87.891 Personal history of nicotine dependence; I25.2 Old myocardial infarction; Z88.1 Allergy status to other antibiotic agents; Z88.8 Allergy status to other drugs, medicaments and biological substances
CPT/HCPCS: 36415; 36416; 71045; 80048; 80053; 82550; 83880; 84484; 85025; 87635; 93005; 96361; 96374; J2405; U0003

== ENCOUNTER 2020-01-25 07:01 | Outpatient (CLI) | payer MEDICARE ==
--- NOTE | 2020-01-25 07:38 | ULT ---
ULTRASOUND RETROPERITONEUM LIMITED: (ABDOMINAL AORTA) DATE: 01/25/2020 HISTORY: Screening for abdominal aortic aneurysm in 54-year-old male FINDINGS: The proximal abdominal aorta is obscured by shadowing from bowel gas. The caliber of the mid and distal abdominal aorta is within normal limits. IMPRESSION: No evidence of abdominal aortic aneurysm.
== END 2020-01-25 07:02 | disposition home or self-care (01) ==
LOC: BICULT 07:01
PROVIDERS: ATTEND Internal Medicine
DX: Z13.6 Encounter for screening for cardiovascular disorders (principal)
CPT/HCPCS: 76775

== ENCOUNTER 2021-03-20 12:27 | Emergency (ER) | payer OTHER, MEDICARE ==
[2021-03-20] MEDS ORDERED: Ibuprofen 800 MG TAB ONE (14:41)
[2021-03-20] MEDS ORDERED: Cyclobenzaprine 10 MG TAB ONE (14:41)
[2021-03-20] MEDS ORDERED: Acetaminophen 500 MG TAB ONE (14:41)
== END 2021-03-20 14:55 | disposition home or self-care (01) ==
LOC: ERS 12:27
DX: M54.50 Low back pain, unspecified (principal); I10 Essential (primary) hypertension; E11.9 Type 2 diabetes mellitus without complications; E78.5 Hyperlipidemia, unspecified; E78.00 Pure hypercholesterolemia, unspecified; I25.10 Atherosclerotic heart disease of native coronary artery without angina pectoris; I25.2 Old myocardial infarction; J44.9 Chronic obstructive pulmonary disease, unspecified; F17.210 Nicotine dependence, cigarettes, uncomplicated; V49.49XA Driver injured in collision with other motor vehicles in traffic accident, initial encounter; Z95.5 Presence of coronary angioplasty implant and graft; Z79.82 Long term (current) use of aspirin; Z79.4 Long term (current) use of insulin; Z79.899 Other long term (current) drug therapy
CPT/HCPCS: 72131

== ENCOUNTER 2021-04-11 12:37 | Outpatient (CLI) | payer MEDICARE | END 2021-04-11 12:38 | disposition home or self-care (01) | LOC: TBSIIMAG 12:37 | PROVIDERS: ATTEND Surgery | DX: M54.16 Radiculopathy, lumbar region (principal); R51.9 Headache, unspecified; H53.9 Unspecified visual disturbance; M43.16 Spondylolisthesis, lumbar region; M47.815 Spondylosis without myelopathy or radiculopathy, thoracolumbar region; M48.061 Spinal stenosis, lumbar region without neurogenic claudication; I67.82 Cerebral ischemia | CPT/HCPCS: 70553; 72148 ==

== ENCOUNTER 2021-07-02 18:18 | Emergency (ER) | payer MEDICARE ==
[2021-07-02 18:50] LABS: #Basophils 0.1 thou/uL (0.0-0.2); #Eosinphils 0.1 thou/uL (0.0-0.7); #Lymphocytes 3.4 thou/uL (1.20-3.40); #Monocytes 0.8 thou/uL (0.11-0.59); #Neutrophils 5.2 thou/uL (1.40-6.50); %Basophils 0.8 % (0.0-1.0); %Eosinophils 1.3 % (0.0-10.0); %Lymphocytes 35.4 % (21.0-51.0); %Monocytes 8.4 % (0.0-10.0); %Neutrophils 54.2 % (42.0-75.0); Hemoglobin 15.7 g/dL (14.0-18.0); Mean Corpuscular HGB CONC 34.2 g/dL (32.0-36.0); Mean Corpuscular Hemoglobin 31.2 pg (27.0-31.0); Mean Corpuscular Volume 91.3 fL (78.0-98.0); Mean Platelet Volume 8.1 fL (7.4-10.4); Platelet Count 224 thou/uL (130-400); RBC Distribution Width 12.3 % (11.5-14.5); Red Blood Cell (RBC) Count 5.04 mill/uL (4.70-6.10); White Blood Cell (WBC) Count 9.6 thou/uL (4.8-10.8)
[2021-07-02 19:32] LABS: ALT (SGPT) 34 U/L (8-55); AST (SGOT) 25 U/L (5-34); Albumin 4.6 g/dL (3.5-5.0); Alkaline Phosphatase 90 U/L (40-110); Anion Gap 15 mmol/L (10-20); BUN (Urea Nitrogen) 13 mg/dL (8.4-25.7); Bilirubin, Total 0.4 mg/dL (0.2-1.2); Calc. Creatinine Clearance 0 mL/min (70-130); Calcium 9.4 mg/dL (7.8-10.44); Carbon Dioxide 26 mmol/L (22-29); Chloride 102 mmol/L (98-107); Glucose 106 mg/dL (70-105); Potassium 3.8 mmol/L (3.5-5.1); Protein, Total 7.6 g/dL (6.0-8.3); Sodium 139 mmol/L (136-145)
[2021-07-02 21:58] LABS: Bilirubin Negative (Negative); Blood, Urine Negative (Negative); Clarity Clear (Clear); Glucose, Urine (Dipstick) Normal (Negative); Ketone, Urine Trace mg/dL (Negative); Leukocyte Negative Leu/uL (Negative); Nitrite Negative (Negative); Protein, Urine (Dipstick) 10 mg/dL (Neg-Trace); Urobilinogen Normal mg/dL (Less than 2)
[2021-07-02] MEDS ORDERED: Morphine 4 MG/ML VIAL ONE (22:32)
[2021-07-02] MEDS ORDERED: Ketorolac Tromethamine 30 MG/ML VIAL ONE (22:32)
[2021-07-02] MEDS ORDERED: Diazepam 5 MG TAB ONE (22:32)
[2021-07-02] MEDS ORDERED: Fentanyl 100 MCG/2 ML VIAL ONE (23:45)
== END 2021-07-03 00:18 | disposition home or self-care (01) ==
LOC: ERS 18:18
DX: S39.012A Strain of muscle, fascia and tendon of lower back, initial encounter (principal); I10 Essential (primary) hypertension; E11.9 Type 2 diabetes mellitus without complications; I25.2 Old myocardial infarction; E78.5 Hyperlipidemia, unspecified; E78.00 Pure hypercholesterolemia, unspecified; J44.9 Chronic obstructive pulmonary disease, unspecified; I25.10 Atherosclerotic heart disease of native coronary artery without angina pectoris; F17.210 Nicotine dependence, cigarettes, uncomplicated; Z95.5 Presence of coronary angioplasty implant and graft; X50.1XXA Overexertion from prolonged static or awkward postures, initial encounter
CPT/HCPCS: 36415; 74176; 80053; 81003; 85025; 87086; 96372; J1885; J2270; J3010

== ENCOUNTER 2021-11-29 07:02 | Inpatient (IN) | payer OTHER ==
[2021-11-27 18:25] LABS: Hemoglobin 17.1 g/dL (13.5-17.5); Mean Corpuscular HGB CONC 33.7 g/dL (32.0-36.0); Mean Corpuscular Hemoglobin 30.4 pg (27.0-33.0); Mean Corpuscular Volume 90.2 fl (81.2-95.1); Mean Platelet Volume 10.3 fl (7.4-10.4); Platelet Count 256 10x3/uL (150-450); RBC Distribution Width 13.3 % (11.5-14.5); Red Blood Cell (RBC) Count 5.63 10x6/uL (4.32-5.72); White Blood Cell (WBC) Count 7.6 10x3/uL (3.5-10.5)
[2021-11-27 18:50] LABS: INR-International Normal Ratio 0.9; PTT 26.7 sec (22.0-33.0); Prothrombin Time 10.1 sec (9.5-12.1)
[2021-11-27 18:52] LABS: Anion Gap 17 mmol/L (10-20); BUN (Urea Nitrogen) 16 mg/dL (8.4-25.7); Calc. Creatinine Clearance 0 mL/min (70-130); Carbon Dioxide 27 mmol/L (22-29); Chloride 104 mmol/L (98-107); Estimated GFR 85; Glucose 110 mg/dL (70-105); Potassium 4.6 mmol/L (3.5-5.1); Sodium 143 mmol/L (136-145)
[2021-11-29] MEDS ORDERED: Midazolam HCl 2 mg/2 ml Vial ONE (08:22)
[2021-11-29] MEDS ORDERED: Thrombin 5000 UNITS/5 ML VIAL ONE ×3 (11:38→15:27)
[2021-11-29] MEDS ORDERED: fentaNYL Citrate/PF 100 MCG/2 ML SYRINGE ONE (11:39)
[2021-11-29] MEDS ORDERED: Dexmedetomidine 200 MCG/2 ML VIAL ONE (11:39)
[2021-11-29] MEDS ORDERED: CEFAZOLIN 2 GM VIAL ONE (11:55)
[2021-11-29] MEDS ORDERED: Sodium Chloride 0.9% 100 ML ONE (11:55)
[2021-11-29] MEDS ORDERED: Ondansetron PF 4 MG/2 ML Vial IVP PRN (12:00)
[2021-11-29] MEDS ORDERED: Lidocaine 1% PF 5 ML VIAL ONE (12:09)
[2021-11-29] MEDS ORDERED: Ondansetron PF 4 MG/2 ML Vial ONE (12:09)
[2021-11-29] MEDS ORDERED: Rocuronium Bromide 10 MG/ML (10ML VIAL) ONE (12:09)
[2021-11-29] MEDS ORDERED: Phenylephrine 10 MG/ML VIAL ONE (12:09)
[2021-11-29] MEDS ORDERED: Dexamethasone 20 MG/5 ML VIAL ONE (12:09)
[2021-11-29] MEDS ORDERED: PROPOFOL 200 MG/20 ML VIAL ONE (12:09)
[2021-11-29] MEDS ORDERED: fentaNYL Citrate/PF 2,000 MCG in Sodium Chloride 0.9% 60 ML IV PRN (12:34)
[2021-11-29] MEDS ORDERED: Acetaminophen 325 MG TAB PO PRN (12:36)
[2021-11-29] MEDS ORDERED: Naloxone HCl 0.4 mg/ml Vial IV PRN (12:39)
[2021-11-29] MEDS ORDERED: hydrALAZINE 20 MG/ML VIAL SLOW IVP PRN (12:41)
[2021-11-29] MEDS ORDERED: Dextrose 50% Abboject 50 ML SYRINGE ONE ×2 (12:55→12:56)
[2021-11-29] MEDS ORDERED: Rocuronium Bromide 50 MG/5 ML VIAL ONE (14:30)
[2021-11-29] MEDS ORDERED: Dextrose 5% in Water 1,000 ML IV PRN (15:00)
[2021-11-29] MEDS ORDERED: Dextrose 50% Abboject 50 ML SYRINGE IVP PRN (15:00)
[2021-11-29] MEDS ORDERED: SUGAMMADEX SODIUM 200 MG/2 ML VIAL ONE (16:11)
[2021-11-29] MEDS ORDERED: HYDROmorphone 2 MG/ML VIAL ONE (16:24)
[2021-11-29] MEDS ORDERED: Promethazine HCl 25 MG/ML VIAL IVPB PRN (16:58)
[2021-11-29] MEDS ORDERED: Ondansetron HCl/PF 4 MG/2 ML Vial IVP PRN (16:58)
[2021-11-29] MEDS ORDERED: HYDROmorphone 2 MG/ML VIAL SLOW IVP PRN (16:58)
[2021-11-29] MEDS ORDERED: Promethazine HCl 25 MG/ML VIAL IM PRN (16:58)
[2021-11-29] MEDS ORDERED: Non-Formulary Item 1 EACH (Insulin Aspart [Novolog] 100 UNIT/ML Vial) SQ SCH (17:00)
[2021-11-29] MEDS ORDERED: Fentanyl 100 MCG/2 ML VIAL ONE (17:01)
[2021-11-29] MEDS: Sodium Chloride 0.9% 1,000 ML IV SCH ×2 (19:36→20:29)
[2021-11-29] MEDS: Pregabalin 50 MG CAP PO SCH ×2 (19:36→20:28)
[2021-11-29] MEDS: Carvedilol 6.25 MG TAB PO SCH (20:28)
[2021-11-29] MEDS: CEFAZOLIN 2 GM in Sodium Chloride 0.9% 100 ML IVPB SCH (20:28)
[2021-11-29] MEDS: Insulin Glargine 30 UNITS/0.3 ML VIAL SC SCH ×2 (20:29→20:32)
[2021-11-29 20:45] VITALS: BMI 33.7
[2021-11-30] MEDS: Diazepam 5 MG TAB PO PRN ×2 (01:23→10:35)
[2021-11-30] MEDS: CEFAZOLIN 2 GM in Sodium Chloride 0.9% 100 ML IVPB SCH ×2 (04:20→11:55)
[2021-11-30 05:00] LABS: #Lymphocytes 1.5 thou/uL (1.20-3.40); #Monocytes 1.4 thou/uL (0.11-0.59); #Neutrophils 10.8 thou/uL (1.40-6.50); %Basophils 0.2 % (0.0-1.0); %Monocytes 9.9 % (0.0-10.0); %Neutrophils 78.9 % (42.0-75.0); Hemoglobin 14.1 g/dL (14.0-18.0); Mean Corpuscular HGB CONC 32.3 g/dL (32.0-36.0); Mean Corpuscular Hemoglobin 31.1 pg (27.0-31.0); Mean Corpuscular Volume 96.1 fL (78.0-98.0); Platelet Count 223 thou/uL (130-400); RBC Distribution Width 12.5 % (11.5-14.5); Red Blood Cell (RBC) Count 4.54 mill/uL (4.70-6.10); White Blood Cell (WBC) Count 13.7 thou/uL (4.8-10.8)
[2021-11-30 06:06] LABS: Anion Gap 16 mmol/L (10-20); BUN (Urea Nitrogen) 16 mg/dL (8.4-25.7); Calc. Creatinine Clearance 127 mL/min (70-130); Calcium 8.8 mg/dL (7.8-10.44); Carbon Dioxide 23 mmol/L (22-29); Chloride 104 mmol/L (98-107); Estimated GFR 93; Glucose 135 mg/dL (70-105); Potassium 3.9 mmol/L (3.5-5.1); Sodium 139 mmol/L (136-145)
[2021-11-30] MEDS: Insulin Glargine 30 UNITS/0.3 ML VIAL SC SCH ×2 (08:50→20:02)
[2021-11-30] MEDS: Atorvastatin Calcium 40 MG TAB PO SCH (08:51)
[2021-11-30] MEDS: Carvedilol 6.25 MG TAB PO SCH ×2 (08:51→20:01)
[2021-11-30] MEDS: Pregabalin 50 MG CAP PO SCH ×3 (08:51→20:00)
[2021-11-30] MEDS: Empagliflozin 10 MG TAB PO SCH (08:51)
[2021-11-30] MEDS ORDERED: Non-Formulary Item 1 EACH (Lisinopril [Lisinopril] 40 MG Tablet) PO SCH (09:00)
[2021-11-30] MEDS ORDERED: HYDROcodone/Acetaminophen 10/325 mg Tablet PO PRN (09:49)
[2021-11-30] MEDS ORDERED: Acetaminophen/Codeine 30-300mg Tablet PO PRN (09:50)
[2021-11-30] MEDS ORDERED: Ketorolac Tromethamine 30 MG/ML VIAL IVP SCH (10:00)
[2021-11-30] MEDS: HumaLOG 300 UNITS/3 ML VIAL SC PRN (12:00)
[2021-11-30] MEDS: Sodium Chloride 0.9% 1,000 ML IV SCH (14:53)
[2021-11-30] MEDS: Docusate 100 MG CAP PO SCH (18:35)
[2021-11-30] MEDS: Ketorolac Tromethamine 30 MG/ML VIAL IVP PRN (18:35)
[2021-11-30] MEDS: HYDROcodone/Acetaminophen 10/325 mg Tablet PO PRN (19:58)
[2021-12-01] MEDS: Sodium Chloride 0.9% 1,000 ML IV SCH ×2 (02:53→15:03)
[2021-12-01] MEDS: HYDROcodone/Acetaminophen 10/325 mg Tablet PO PRN ×4 (03:16→21:01)
[2021-12-01] MEDS: Docusate 100 MG CAP PO SCH ×2 (08:24→21:00)
[2021-12-01] MEDS: Carvedilol 6.25 MG TAB PO SCH ×2 (08:26→20:59)
[2021-12-01] MEDS: Pregabalin 50 MG CAP PO SCH ×3 (08:26→21:00)
[2021-12-01] MEDS: Insulin Glargine 30 UNITS/0.3 ML VIAL SC SCH ×2 (08:27→21:04)
[2021-12-01] MEDS: Atorvastatin Calcium 40 MG TAB PO SCH (08:28)
[2021-12-01] MEDS: Ketorolac Tromethamine 30 MG/ML VIAL IVP PRN (12:07)
[2021-12-01] MEDS: Empagliflozin 10 MG TAB PO SCH (14:02)
[2021-12-01] MEDS: Polyethylene Glycol 3350 17 GM Packet PO PRN (21:04)
[2021-12-01] MEDS: HumaLOG 300 UNITS/3 ML VIAL SC PRN (21:15)
[2021-12-02] MEDS: Ketorolac Tromethamine 30 MG/ML VIAL IVP PRN ×3 (00:52→21:32)
[2021-12-02] MEDS: Diazepam 5 MG TAB PO PRN ×2 (01:35→23:45)
[2021-12-02] MEDS ORDERED: Mineral Oil ENEMA PR PRN (08:52)
[2021-12-02] MEDS: Empagliflozin 10 MG TAB PO SCH (09:00)
[2021-12-02] MEDS: Polyethylene Glycol 3350 17 GM Packet PO PRN (10:20)
[2021-12-02] MEDS: Docusate 100 MG CAP PO SCH ×2 (10:21→21:18)
[2021-12-02] MEDS: Milk Of Magnesia 30 ML UDCUP PO PRN (10:21)
[2021-12-02] MEDS: Carvedilol 6.25 MG TAB PO SCH ×2 (10:22→21:18)
[2021-12-02] MEDS: Pregabalin 50 MG CAP PO SCH ×3 (10:23→21:18)
[2021-12-02] MEDS: HYDROcodone/Acetaminophen 10/325 mg Tablet PO PRN ×3 (10:23→21:44)
[2021-12-02] MEDS: Atorvastatin Calcium 40 MG TAB PO SCH (10:24)
[2021-12-02] MEDS: Sodium Chloride 0.9% 1,000 ML IV SCH ×2 (10:24→20:00)
[2021-12-02] MEDS: Insulin Glargine 30 UNITS/0.3 ML VIAL SC SCH ×2 (10:29→21:17)
[2021-12-03] MEDS: Milk Of Magnesia 30 ML UDCUP PO PRN ×2 (01:45→10:17)
[2021-12-03] MEDS: HYDROcodone/Acetaminophen 10/325 mg Tablet PO PRN ×3 (05:55→21:34)
[2021-12-03] MEDS: Polyethylene Glycol 3350 17 GM Packet PO PRN (06:46)
[2021-12-03] MEDS ORDERED: Magnesium Citrate 300 ML BOT PO PRN (08:28)
[2021-12-03] MEDS ORDERED: Fleet Enema 133 ML BOT PR SCH (08:30)
[2021-12-03 09:22] LABS: Anion Gap 11 mmol/L (10-20); BUN (Urea Nitrogen) 13 mg/dL (8.4-25.7); Calc. Creatinine Clearance 167 mL/min (70-130); Carbon Dioxide 29 mmol/L (22-29); Chloride 105 mmol/L (98-107); Estimated GFR 107; Glucose 116 mg/dL (70-105); Potassium 3.8 mmol/L (3.5-5.1); Sodium 141 mmol/L (136-145)
[2021-12-03] MEDS: Pregabalin 50 MG CAP PO SCH ×3 (10:18→21:34)
[2021-12-03] MEDS: Carvedilol 6.25 MG TAB PO SCH ×2 (10:18→21:33)
[2021-12-03] MEDS: Atorvastatin Calcium 40 MG TAB PO SCH (10:19)
[2021-12-03] MEDS: Tamsulosin HCl 0.4 MG CAP PO SCH (10:19)
[2021-12-03] MEDS: Docusate 100 MG CAP PO SCH ×2 (10:19→21:32)
[2021-12-03] MEDS: Insulin Glargine 30 UNITS/0.3 ML VIAL SC SCH ×2 (10:28→21:32)
[2021-12-03] MEDS: Empagliflozin 10 MG TAB PO SCH (11:20)
[2021-12-03] MEDS: Ketorolac Tromethamine 30 MG/ML VIAL IVP PRN ×2 (12:17→21:47)
[2021-12-03] MEDS ORDERED: Promethazine HCl 12.5 MG in Sodium Chloride 0.9% 50 ML IVPB PRN (14:28)
[2021-12-03] MEDS: Sodium Chloride 0.9% 1,000 ML IV SCH ×2 (14:53→23:30)
[2021-12-03] MEDS ORDERED: Bisacodyl 10 MG SUPP PR SCH (21:45)
[2021-12-04] MEDS: Diazepam 5 MG TAB PO PRN ×2 (00:05→09:29)
[2021-12-04] MEDS: Ketorolac Tromethamine 30 MG/ML VIAL IVP PRN ×3 (04:05→21:54)
[2021-12-04] MEDS: HYDROcodone/Acetaminophen 10/325 mg Tablet PO PRN ×3 (04:05→21:54)
[2021-12-04 07:03] LABS: #Eosinphils 0.2 thou/uL (0.0-0.7); #Lymphocytes 2.2 thou/uL (1.20-3.40); #Monocytes 0.8 thou/uL (0.11-0.59); #Neutrophils 3.7 thou/uL (1.40-6.50); %Basophils 0.4 % (0.0-1.0); %Eosinophils 2.6 % (0.0-10.0); %Monocytes 11.4 % (0.0-10.0); %Neutrophils 53.5 % (42.0-75.0); Hemoglobin 13.2 g/dL (14.0-18.0); Mean Corpuscular HGB CONC 33.3 g/dL (32.0-36.0); Mean Corpuscular Hemoglobin 31.5 pg (27.0-31.0); Mean Corpuscular Volume 94.6 fL (78.0-98.0); Mean Platelet Volume 7.5 fL (7.4-10.4); Platelet Count 254 thou/uL (130-400); RBC Distribution Width 11.8 % (11.5-14.5); Red Blood Cell (RBC) Count 4.18 mill/uL (4.70-6.10); White Blood Cell (WBC) Count 6.9 thou/uL (4.8-10.8)
[2021-12-04 07:30] LABS: Anion Gap 12 mmol/L (10-20); BUN (Urea Nitrogen) 13 mg/dL (8.4-25.7); Calc. Creatinine Clearance 151 mL/min (70-130); Calcium 9.2 mg/dL (7.8-10.44); Carbon Dioxide 29 mmol/L (22-29); Chloride 102 mmol/L (98-107); Estimated GFR 104; Glucose 110 mg/dL (70-105); Potassium 3.9 mmol/L (3.5-5.1); Sodium 139 mmol/L (136-145)
[2021-12-04] MEDS: Pregabalin 50 MG CAP PO SCH ×3 (09:22→21:57)
[2021-12-04] MEDS: Saccharomyces boulardii 250 MG CAP PO SCH (09:23)
[2021-12-04] MEDS: Tamsulosin HCl 0.4 MG CAP PO SCH (09:23)
[2021-12-04] MEDS: Carvedilol 6.25 MG TAB PO SCH ×2 (09:24→21:52)
[2021-12-04] MEDS: Empagliflozin 10 MG TAB PO SCH (09:24)
[2021-12-04] MEDS: Atorvastatin Calcium 40 MG TAB PO SCH (09:24)
[2021-12-04] MEDS: Insulin Glargine 30 UNITS/0.3 ML VIAL SC SCH ×2 (09:26→21:56)
[2021-12-04] MEDS: Cephalexin 250 MG CAP PO SCH ×3 (09:30→21:54)
[2021-12-04] MEDS: Sodium Chloride 0.9% 1,000 ML IV SCH (12:17)
[2021-12-04] MEDS: Hydrocortisone 2.5%/Pramoxine 1% CRM 30 GM TUBE PR SCH ×2 (14:33→21:57)
[2021-12-04] MEDS ORDERED: Senokot S 8.6-50 MG TAB PO SCH (21:00)
[2021-12-04] MEDS: Senokot S 8.6-50 MG TAB PO SCH (21:58)
[2021-12-05] MEDS: Sodium Chloride 0.9% 1,000 ML IV SCH (01:20)
[2021-12-05] MEDS: Cephalexin 250 MG CAP PO SCH ×2 (03:15→09:45)
[2021-12-05] MEDS: HYDROcodone/Acetaminophen 10/325 mg Tablet PO PRN ×2 (04:32→13:09)
[2021-12-05] MEDS: HumaLOG 300 UNITS/3 ML VIAL SC PRN ×2 (06:42)
[2021-12-05] MEDS ORDERED: Ibuprofen 800 MG TAB PO PRN (08:09)
[2021-12-05] MEDS: Empagliflozin 10 MG TAB PO SCH (09:43)
[2021-12-05] MEDS: Carvedilol 6.25 MG TAB PO SCH (09:43)
[2021-12-05] MEDS: Tamsulosin HCl 0.4 MG CAP PO SCH (09:44)
[2021-12-05] MEDS: Senokot S 8.6-50 MG TAB PO SCH (09:44)
[2021-12-05] MEDS: Saccharomyces boulardii 250 MG CAP PO SCH (09:44)
[2021-12-05] MEDS: Pregabalin 50 MG CAP PO SCH (09:45)
[2021-12-05] MEDS: Atorvastatin Calcium 40 MG TAB PO SCH (09:45)
[2021-12-05] MEDS: Hydrocortisone 2.5%/Pramoxine 1% CRM 30 GM TUBE PR SCH (09:46)
[2021-12-05] MEDS: Diazepam 5 MG TAB PO PRN ×2 (09:50)
[2021-12-05] MEDS: Insulin Glargine 30 UNITS/0.3 ML VIAL SC SCH (09:57)
[2021-12-05 12:52] VITALS: BP 158/85; TEMP 98.1
[2021-12-05] MEDS ORDERED: Citrucel 500 MG TAB PO SCH (21:00)
== END 2021-12-05 13:35 | disposition home or self-care (01) | DRG 460 ==
LOC: SDC 07:02 → SJJU 18:39 → OBSVTOIN 11-30 11:01
PROVIDERS: ADMIT Surgery; ATTEND Surgery
PROC: 0SG30AJ Fusion of Lumbosacral Joint with Interbody Fusion Device, Posterior Approach, Anterior Column, Open Approach (ICD-10-PCS; principal; 2021-11-29)
PROC: 0SB40ZZ Excision of Lumbosacral Disc, Open Approach (ICD-10-PCS; 2021-11-29)
PROC: 01NB0ZZ Release Lumbar Nerve, Open Approach (ICD-10-PCS; 2021-11-29)
PROC: 3E0U0GB Introduction of Recombinant Bone Morphogenetic Protein into Joints, Open Approach (ICD-10-PCS; 2021-11-29)
DX: M48.061 Spinal stenosis, lumbar region without neurogenic claudication (principal); T81.31XA Disruption of external operation (surgical) wound, not elsewhere classified, initial encounter; M43.16 Spondylolisthesis, lumbar region; Z20.822 Contact with and (suspected) exposure to COVID-19; E11.43 Type 2 diabetes mellitus with diabetic autonomic (poly)neuropathy; I25.10 Atherosclerotic heart disease of native coronary artery without angina pectoris; K31.84 Gastroparesis; I10 Essential (primary) hypertension; G89.29 Other chronic pain; I25.5 Ischemic cardiomyopathy; M47.26 Other spondylosis with radiculopathy, lumbar region; K64.9 Unspecified hemorrhoids; Y83.8 Other surgical procedures as the cause of abnormal reaction of the patient, or of later complication, without mention of misadventure at the time of the procedure; K59.03 Drug induced constipation; T40.2X5A Adverse effect of other opioids, initial encounter; R33.9 Retention of urine, unspecified; Z79.899 Other long term (current) drug therapy; Z79.4 Long term (current) use of insulin; Z95.5 Presence of coronary angioplasty implant and graft; Z98.890 Other specified postprocedural states; Z83.3 Family history of diabetes mellitus; Z79.82 Long term (current) use of aspirin
CPT/HCPCS: 36415; 36416; 51701; 51798; 74018; 74176; 76000; 80048; 85025; 85027; 85610; 85730; 86850; 86900; 86901; 87811; 94760; 96374; 96375; 96376; C1713; C1776; G0378; J0690; J1100; J1170; J1815; J1885; J2250; J2370; J2405; J2704; J3010; J3370; J3490; J7050; J7999

== ENCOUNTER 2022-01-14 13:07 | Outpatient (CLI) | payer OTHER | END 2022-01-14 13:08 | disposition home or self-care (01) | LOC: BICRAD 13:07 | PROVIDERS: ATTEND Surgery | DX: M47.26 Other spondylosis with radiculopathy, lumbar region (principal); M43.16 Spondylolisthesis, lumbar region; Z98.890 Other specified postprocedural states | CPT/HCPCS: 72100 ==

== ENCOUNTER 2022-04-09 15:21 | Outpatient (CLI) | payer OTHER | END 2022-04-09 15:22 | disposition home or self-care (01) | LOC: BICULT 15:21 | PROVIDERS: ATTEND Internal Medicine | DX: N28.1 Cyst of kidney, acquired (principal) | CPT/HCPCS: 76770 ==

== ENCOUNTER 2022-05-13 08:56 | Outpatient (CLI) | payer OTHER ==
[2022-05-13] MEDS ORDERED: Magnevist 469MG/ML 20 ML VIAL ONE (15:44)
== END 2022-05-13 08:57 | disposition home or self-care (01) ==
LOC: MRI 08:56
PROVIDERS: ATTEND Nurse Practitioner
DX: M51.15 Intervertebral disc disorders with radiculopathy, thoracolumbar region (principal)
CPT/HCPCS: 72158; A9579

== ENCOUNTER 2022-06-14 13:09 | Outpatient (CLI) | payer OTHER | END 2022-06-14 13:10 | disposition home or self-care (01) | LOC: BICCT 13:09 | PROVIDERS: ATTEND Surgery | DX: M43.16 Spondylolisthesis, lumbar region (principal); M48.061 Spinal stenosis, lumbar region without neurogenic claudication; Z98.1 Arthrodesis status | CPT/HCPCS: 72131 ==

== ENCOUNTER 2022-09-13 09:08 | Emergency (ER) | payer OTHER ==
[2022-09-13] MEDS ORDERED: Iopamidol-370 76% 500 ML MDV (1 ML CHARGE) ONE (10:00)
[2022-09-13] MEDS ORDERED: Morphine 4 MG/ML VIAL ONE (10:30)
== END 2022-09-13 12:34 ==
LOC: ERS 09:08
DX: M54.50 Low back pain, unspecified (principal); I25.10 Atherosclerotic heart disease of native coronary artery without angina pectoris; E11.9 Type 2 diabetes mellitus without complications; E78.00 Pure hypercholesterolemia, unspecified; J44.9 Chronic obstructive pulmonary disease, unspecified; Z87.891 Personal history of nicotine dependence; Z79.899 Other long term (current) drug therapy; Z79.82 Long term (current) use of aspirin; Z79.4 Long term (current) use of insulin
CPT/HCPCS: 72132; 96374; J2270; Q9967

== ENCOUNTER 2023-01-14 15:05 | Outpatient (CLI) | payer OTHER | END 2023-01-14 15:06 | disposition home or self-care (01) | LOC: BICMRI 15:05 | PROVIDERS: ATTEND Surgery | DX: M54.50 Low back pain, unspecified (principal); M47.816 Spondylosis without myelopathy or radiculopathy, lumbar region; Z98.1 Arthrodesis status | CPT/HCPCS: 72148 ==

== ENCOUNTER 2023-09-18 11:24 | Outpatient (CLI) | payer OTHER | END 2023-09-18 11:25 | disposition home or self-care (01) | LOC: BICRAD 11:24 | PROVIDERS: ATTEND Internal Medicine | DX: M79.641 Pain in right hand (principal); M79.642 Pain in left hand ==

== ENCOUNTER 2024-07-06 12:52 | Inpatient (IN) | payer OTHER ==
[2024-07-06 13:41] LABS: #Basophils Less than 0.03 10x3/uL (0.0-0.2); %Basophils 0.1 % (0.0-1.0); %Eosinophils 0.3 % (0.0-10.0); %Lymphocytes 23.2 % (21.0-51.0); %Monocytes 7.4 % (0.0-10.0); %Neutrophils 68.8 % (42.0-75.0); Hematocrit 50.7 % (42.0-52.0); Hemoglobin 17.4 g/dL (14.0-18.0); Mean Corpuscular HGB CONC 34.3 g/dL (32.0-36.0); Mean Corpuscular Hemoglobin 30.2 pg (27.0-31.0); Mean Corpuscular Volume 87.9 fL (78.0-98.0); Mean Platelet Volume 9.6 fL (7.4-10.4); Platelet Count 261 10x3/uL (130-400); RBC Distribution Width 12.6 % (11.5-14.5); Red Blood Cell (RBC) Count 5.77 mill/uL (4.70-6.10)
[2024-07-06 13:56] LABS: ALT (SGPT) 38 U/L (Less than 45); AST (SGOT) 52 U/L (11-34); Albumin 4.5 g/dL (3.1-4.5); Alkaline Phosphatase 95 U/L (40-110); Anion Gap 16 mmol/L (10-20); BUN (Urea Nitrogen) 14 mg/dL (8.4-25.7); Bilirubin, Total 0.3 mg/dL (0.3-1.2); Calc. Creatinine Clearance 0 mL/min (70-130); Calcium 10.1 mg/dL (7.8-10.44); Carbon Dioxide 21 mmol/L (22-29); Chloride 106 mmol/L (98-107); Estimated GFR 101; Globulin 3.6 g/dL (2.4-3.5); Glucose 181 mg/dL (70-105); Potassium 4.1 mmol/L (3.5-5.1); Protein, Total 8.1 g/dL (6.0-8.3); Sodium 139 mmol/L (136-145)
[2024-07-06 14:03] LABS: Troponin I 2.897 ng/mL (< 0.028)
[2024-07-06] MEDS ORDERED: Aspirin Chewable 81 MG TAB ONE (14:07)
[2024-07-06] MEDS ORDERED: Nitroglycerin 2% Ointment 1 INCH/1 GM Packet ONE ×2 (14:07)
[2024-07-06] MEDS ORDERED: Enoxaparin 80 MG (0.8 mL) SYRINGE ONE (14:33)
[2024-07-06] MEDS ORDERED: Morphine 4 MG/ML VIAL ONE (14:33)
[2024-07-06] MEDS ORDERED: Ondansetron PF 4 MG/2 ML Vial ONE (14:33)
[2024-07-06] MEDS ORDERED: Calcium Carbonate 500 MG ChewTAB PO PRN (14:43)
[2024-07-06 15:41] VITALS: BMI 26.6
[2024-07-06] MEDS: Nitroglycerin 0.4 MG TAB (25 Tab Bottle) ONE (16:18)
[2024-07-06] MEDS: Morphine 2 MG/ML VIAL SLOW IVP PRN (17:18)
[2024-07-06] MEDS: Pregabalin 50 MG CAP PO SCH (17:27)
[2024-07-06] MEDS: Nitroglycerin 50 MG/250 ML BOT 250 ML ONE (17:28)
[2024-07-06 17:53] LABS: Critical Call Chem Troponin I RESULT DECREASING; Troponin I 3.455 ng/mL (< 0.028)
[2024-07-06] MEDS: Acetaminophen 325 MG TAB PO PRN (18:28)
[2024-07-06] MEDS: Clopidogrel Bisulfate 300 MG TAB PO SCH (18:33)
[2024-07-06 20:00] LABS: Troponin I 3.902 ng/mL (< 0.028)
[2024-07-06] MEDS ORDERED: Nitroglycerin 2% Ointment 1 INCH/1 GM Packet TOP SCH (21:00)
[2024-07-06] MEDS: Carvedilol 6.25 MG TAB PO SCH (21:51)
[2024-07-06] MEDS: Insulin Glargine 30 UNITS/0.3 ML VIAL SC SCH (21:53)
[2024-07-06] MEDS: Senokot S 8.6-50 MG TAB PO PRN (21:57)
[2024-07-06] MEDS: oxyCODONE 5 MG TAB PO SCH (22:28)
[2024-07-06] MEDS: tiZANidine HCl 4 MG TAB PO SCH (22:28)
[2024-07-06] MEDS ORDERED: oxyCODONE/Acetaminophen 5 mg/325 mg Tablet PO ONE (22:39)
[2024-07-07] MEDS ORDERED: Dextrose 50% Abboject 50 ML SYRINGE SLOW IVP PRN
[2024-07-07] MEDS ORDERED: Glucagon 1 MG/ML KIT IM PRN
[2024-07-07] MEDS ORDERED: Insulin Lispro 100 UNIT/ML 10 ML VIAL SC PRN ×2
[2024-07-07] MEDS ORDERED: Dextrose 5% in Water 1,000 ML IV PRN
[2024-07-07] MEDS: Nitroglycerin 50 MG/250 ML BOT 250 ML IVPB SCH (00:51)
[2024-07-07] MEDS: oxyCODONE 5 MG TAB PO SCH (00:53)
[2024-07-07] MEDS: Enoxaparin 80 MG (0.8 mL) SYRINGE SC SCH (03:00)
[2024-07-07 04:20] LABS: #Basophils 0.03 10x3/uL (0.0-0.2); %Basophils 0.3 % (0.0-1.0); %Eosinophils 0.6 % (0.0-10.0); %Lymphocytes 25.1 % (21.0-51.0); %Monocytes 11.4 % (0.0-10.0); %Neutrophils 62.3 % (42.0-75.0); Hematocrit 48.2 % (42.0-52.0); Hemoglobin 16.5 g/dL (14.0-18.0); Mean Corpuscular HGB CONC 34.2 g/dL (32.0-36.0); Mean Corpuscular Hemoglobin 30.1 pg (27.0-31.0); Mean Platelet Volume 9.7 fL (7.4-10.4); Platelet Count 238 10x3/uL (130-400); RBC Distribution Width 12.8 % (11.5-14.5); Red Blood Cell (RBC) Count 5.48 mill/uL (4.70-6.10)
[2024-07-07 04:32] LABS: Hemoglobin A1c 6.4 % (4.0-6.0)
[2024-07-07 04:36] LABS: ALT (SGPT) 32 U/L (Less than 45); AST (SGOT) 45 U/L (11-34); Albumin 4.1 g/dL (3.1-4.5); Alkaline Phosphatase 79 U/L (40-110); Anion Gap 14 mmol/L (10-20); BUN (Urea Nitrogen) 15 mg/dL (8.4-25.7); Bilirubin, Total 0.5 mg/dL (0.3-1.2); Calc. Creatinine Clearance 106 mL/min (70-130); Calcium 9.5 mg/dL (7.8-10.44); Carbon Dioxide 24 mmol/L (22-29); Cardiac Risk 4.7 (Less than 4.5); Chloride 104 mmol/L (98-107); Cholesterol 137 mg/dl (< 200 Desired); Estimated GFR 100; Globulin 2.9 g/dL (2.4-3.5); Glucose 168 mg/dL (70-105); HDL Cholesterol 29 mg/dL (>60 Neg Risk); LDL Cholesterol, Calculated 67 mg/dL; Magnesium 2.1 mg/dL (1.6-2.6); Potassium 4.2 mmol/L (3.5-5.1); Sodium 138 mmol/L (136-145); Triglycerides 204 mg/dL (Less than 150)
[2024-07-07] MEDS: Famotidine/PF 20 mg/2ml Vial SLOW IVP SCH (09:08)
[2024-07-07] MEDS: Empagliflozin 10 MG TAB PO SCH (09:08)
[2024-07-07] MEDS: Atorvastatin Calcium 40 MG TAB PO SCH (09:09)
[2024-07-07] MEDS: Aspirin 81 mg Enteric Coated Tablet PO SCH (09:09)
[2024-07-07] MEDS: Sacubitril 24MG/Valsartan 26 MG TAB PO SCH (09:10)
[2024-07-07] MEDS ORDERED: Communication Order-Pharmacy FS SCH (10:00)
[2024-07-07] MEDS: Sodium Chloride 0.9% 1,000 ML IV SCH ×2 (10:26→14:37)
[2024-07-07] MEDS ORDERED: Adenosine 6 mg (2 mL) VIAL ONE (11:44)
[2024-07-07] MEDS ORDERED: Midazolam HCl 2 mg/2 ml Vial ONE (11:44)
[2024-07-07] MEDS ORDERED: fentaNYL 50 mcg/mL 1 mL Vial ONE (11:44)
[2024-07-07] MEDS ORDERED: Atropine Sulfate 1 mg/10 ml Syringe ONE (11:44)
[2024-07-07] MEDS ORDERED: Verapamil 5 MG/2 ML VIAL ONE (11:45)
[2024-07-07] MEDS ORDERED: PHENYLEPHRINE-NS 100 MCG/ML 10 ML SYRINGE ONE (11:45)
[2024-07-07] MEDS ORDERED: Heparin 10,000 UNITS/ 10 ML VIAL ONE (11:45)
[2024-07-07] MEDS ORDERED: Nitroglycerin 50 MG/250 ML BOT 250 ML ONE (11:45)
[2024-07-07] MEDS ORDERED: Sodium Chloride 0.9% 200 ML IV PRN (13:44)
[2024-07-07] MEDS ORDERED: Acetaminophen/Codeine 30-300mg Tablet PO PRN ×2 (13:44)
[2024-07-07] MEDS ORDERED: Nitroglycerin 0.4 MG TAB (25 Tab Bottle) SL PRN (13:44)
[2024-07-07] MEDS ORDERED: oxyCODONE 5 MG TAB PO PRN (15:37)
[2024-07-07] MEDS: oxyCODONE 5 MG TAB PO PRN (18:21)
[2024-07-08 09:33] LABS: #Basophils Less than 0.03 10x3/uL (0.0-0.2); %Basophils 0.3 % (0.0-1.0); %Eosinophils 1.4 % (0.0-10.0); %Lymphocytes 34.6 % (21.0-51.0); %Monocytes 12.2 % (0.0-10.0); %Neutrophils 51.2 % (42.0-75.0); Hematocrit 44.6 % (42.0-52.0); Hemoglobin 15.1 g/dL (14.0-18.0); Mean Corpuscular HGB CONC 33.9 g/dL (32.0-36.0); Mean Corpuscular Hemoglobin 30.1 pg (27.0-31.0); Mean Platelet Volume 9.5 fL (7.4-10.4); Platelet Count 229 10x3/uL (130-400); RBC Distribution Width 12.6 % (11.5-14.5); Red Blood Cell (RBC) Count 5.01 mill/uL (4.70-6.10)
[2024-07-08 09:55] LABS: ALT (SGPT) 22 U/L (Less than 45); AST (SGOT) 27 U/L (11-34); Albumin 3.7 g/dL (3.1-4.5); Alkaline Phosphatase 67 U/L (40-110); Anion Gap 12 mmol/L (10-20); BUN (Urea Nitrogen) 14 mg/dL (8.4-25.7); Bilirubin, Total 0.6 mg/dL (0.3-1.2); Calc. Creatinine Clearance 99 mL/min (70-130); Calcium 8.8 mg/dL (7.8-10.44); Carbon Dioxide 26 mmol/L (22-29); Chloride 103 mmol/L (98-107); Estimated GFR 93; Globulin 2.9 g/dL (2.4-3.5); Glucose 187 mg/dL (70-105); Potassium 3.9 mmol/L (3.5-5.1); Protein, Total 6.6 g/dL (6.0-8.3); Sodium 137 mmol/L (136-145)
[2024-07-08 11:49] VITALS: TEMP 98.2
[2024-07-08 12:52] VITALS: BP 132/78
[2024-07-08] MEDS: tiZANidine HCl 4 MG TAB PO PRN (14:07)
== END 2024-07-08 14:37 | disposition home or self-care (01) | DRG 281 ==
LOC: ERS 12:52 → SUATTDRO 12:52 → 2NO 14:42 → CCU 16:58 → PCU 07-07 15:18 → CCU 07-07 15:18 → PCU 07-07 16:19
PROVIDERS: ADMIT Internal Medicine; ATTEND Internal Medicine
PROC: 4A023N7 Measurement of Cardiac Sampling and Pressure, Left Heart, Percutaneous Approach (ICD-10-PCS; principal; 2024-07-06)
PROC: B2111ZZ Fluoroscopy of Multiple Coronary Arteries using Low Osmolar Contrast (ICD-10-PCS; 2024-07-06)
PROC: B2151ZZ Fluoroscopy of Left Heart using Low Osmolar Contrast (ICD-10-PCS; 2024-07-06)
DX: I21.4 Non-ST elevation (NSTEMI) myocardial infarction (principal); I50.22 Chronic systolic (congestive) heart failure; I11.0 Hypertensive heart disease with heart failure; I25.10 Atherosclerotic heart disease of native coronary artery without angina pectoris; E11.9 Type 2 diabetes mellitus without complications; E78.5 Hyperlipidemia, unspecified; F12.19 Cannabis abuse with unspecified cannabis-induced disorder; Z79.82 Long term (current) use of aspirin; Z79.02 Long term (current) use of antithrombotics/antiplatelets; Z79.899 Other long term (current) drug therapy; Z87.891 Personal history of nicotine dependence
CPT/HCPCS: 36415; 71045; 80053; 80061; 83036; 83735; 83880; 84484; 85025; 93005; 93306; 93458; 93798; 94760; 96372; 96374; 99152; C1769; C1894; J0153; J0461; J1644; J1650; J1815; J2250; J2270; J2272; J2405; J3010; J3490; J7030